=== PATIENT | female | born 1945 | race Caucasian/White ===

== ENCOUNTER 2017-12-19 18:46 | Emergency (ER) | payer MEDICARE, OTHER, SELFPAY ==
[2017-12-19 19:08] VITALS: BP 191/79; PULSE 108; RESP 14; TEMP 36.7; O2SAT 96; BMI 30.9
--- NOTE | 2017-12-19 19:28 | XR_ITS ---
XR chest 2V HISTORY: ITS.REASON: hypertension ORDERING PHYSICIAN: Billy Griffin MD PATIENT AGE: 72 years COMPARISON: None available FINDINGS: The cardiomediastinal silhouette and pulmonary vascularity are within normal limits. The lungs are clear without infiltrates, suspicious nodules, or pleural effusions. No acute bony abnormalities. IMPRESSION: Negative chest, no acute finding
[2017-12-19 19:39] LABS: Basophils % 0.4 % (0.1-2.0); Eosinophils # 0.1 K/mm3 (0.0-0.4); Eosinophils % 2.1 % (0.1-12.0); Hematocrit 36.3 % (37.0-47.0); Lymphocytes # 1.7 K/mm3 (0.7-4.5); Mean Corpuscular HGB Conc 33.1 g/dL (31.8-35.4); Mean Corpuscular Hemoglobin 29.3 pg (27.0-31.2); Mean Corpuscular Volume 88.5 fl (81-99); Mean Platelet Volume 8.1 fl (7.4-10.4); Monocytes # 0.3 K/mm3 (0.1-1.0); Monocytes % 6.2 % (1.7-9.3); Neutrophils # 3.1 K/mm3 (1.8-7.8); Neutrophils % 59.4 % (37.0-80.0); Platelet Count 204 K/mm3 (142-424); Red Cell Distribution Width 14.5 % (11.5-17.5); White Blood Count 5.2 K/mm3 (4.8-10.8)
[2017-12-19 20:14] LABS: Alanine Aminotransferase 31 U/L (12-78); Albumin Level 4.3 gm/dL (3.4-5.0); Albumin/Globulin Ratio 1.3 (1.1-1.8); Alkaline Phosphatase 64 U/L (46-116); Anion Gap 18.5 mEq/L (5-15); Aspartate Amino Transferase 20 U/L (15-37); Bilirubin,Total 0.5 mg/dL (0.2-1.0); Blood Urea Nitrogen 25 mg/dL (7-18); Calcium 9.1 mg/dL (8.5-10.1); Carbon Dioxide 25 mmol/L (21.0-32.0); Chloride 103 mmol/L (98-107); Creatinine Clearance Estimated 56 mL/min (0-300); Creatinine,Serum 1.13 mg/dL (0.55-1.02); Estimated Glomerular Filt Rate 48 ml/min (>60); GFR (African American) 58 ML/MIN (>60); Globulin 3.3 gm/dl (1.3-3.2); Glucose 158 mg/dL (74-106); Potassium 3.5 mmoL/L (3.5-5.1); Sodium 143 mmol/L (136-145); Total Protein,Serum 7.6 gm/dL (6.4-8.2); Troponin I < 0.02 ng/ml (0.00-0.06)
[2017-12-19 21:02] VITALS: BP 184/89; PULSE 111; RESP 14; TEMP 36.7; O2SAT 94
--- NOTE | 2017-12-19 21:44 | HMH.EDARPALP ---
ED Disposition Clinical Impression: Palpitations, Renal insufficiency Disposition: Home, Self-Care Condition on Discharge: Good Instructions: DI for Palpitations Additional Instructions: call pcp for follow up Referrals: Layo Maurice [Primary Care Provider] - - Critical Care Critical Care Time: No Attestation: On 12/19/17, the high probability of a clinically significant, sudden or life threatening deterioration of the following system(s) required my full and direct attention, intervention and personal management. The time I documented below is in addition to time spent performing reported procedures but includes the following listed in this critical care notation. Medical Decision Making - Medical Records Medical records reviewed: Yes: I reviewed the patient's medical records. Vital Signs: 12/19/17 19:08 12/19/17 21:02 Temperature 98.1 F 98.1 F Temperature Source Oral Oral Pulse Rate [Right Radial] 108 H 111 H Respiratory Rate 14 14 Blood Pressure [Right Radial Artery] 191/79 184/89 Blood Pressure Mean [Right Radial Artery] 116 120 Blood Pressure Source [Right Radial Artery] Automatic Cuff Blood Pressure Position [Right Radial Artery] Supine Sitting 02 Sat by Pulse Oximetry 96 94 L Oxygen Delivery Method Room Air Room Air - Lab Data Lab Results 12/19/17 19:20: WBC 5.2, RBC 4.10 L, Hgb 12.0 L, Hct 36.3 L, MCV 88.5, MCH 29.3, MCHC 33.1, RDW 14.5, Plt Count 204, MPV 8.1, Neut % (Auto) 59.4, Lymph % (Auto) 32.0, [place] % (Auto) 6.2, Eos % (Auto) 2.1, Baso % (Auto) 0.4, Neut # (Auto) 3.1, Lymph # (Auto) 1.7, [place] # (Auto) 0.3, Eos # (Auto) 0.1, Baso # (Auto) 0.0 12/19/17 19:20: Sodium 143, Potassium 3.5, Chloride 103, Carbon Dioxide 25, Anion Gap 18.5 H, BUN 25 H, Creatinine 1.13 H, Estimated Creat Clear 56, Estimated GFR 48 L, Est GFR ( Amer) 58 L, Glucose 158 H, Calcium 9.1, Total Bilirubin 0.5, AST 20, ALT 31, Alkaline Phosphatase 64, Troponin I < 0.02, Total Protein 7.6, Albumin 4.3, Globulin 3.3 H, Albumin/Globulin Ratio 1.3 Result diagrams: 12/19/17 19:20 12/19/17 19:20 Orders (Tests/Meds): ORDERS Category Date Time Status XR chest 2V Stat Exams 12/19/17 19:28 Taken - ECG Data Tracing #1 I reviewed this ECG and interpreted as documented below: Arrhythmias present: sinus tach Ischemic changes: non-specific ST-T wave changes ECG compared to prior tracings: there are no prior tracings available for comparison - Junior Inquiry Pt receiving controlled substance: No Arrhythmia/Palpitations HPI - General Chief Complaint: Arrhythmia/Palpitations Stated Complaint: pluse&bp High Time Seen by Provider: 12/19/17 21:45 Mode of Arrival: Ambulatory Source of Information: Patient, Significant Other, Medical Record Limitations: No Limitations - History of Present Illness HPI narrative: this wf over the last few days has episodes of inc hr and elevated bp MD complaint: palpitations Onset (ago): hour(s) Duration: intermittent Severity: moderate Context: occurred during rest - Related Data Home Medications Medication Instructions Recorded Confirmed Alendronate Sodium 35 mg PO WEEKLY 12/19/17 12/19/17 Allopurinol [Allopurinol 100mg 100 mg PO DAILY 12/19/17 12/19/17 tablet] Amlodipine Besylate [Norvasc 5mg 5 mg PO DAILY 12/19/17 12/19/17 tablet] Aspirin [Aspirin 81mg EC Tab] 81 mg PO DAILY 12/19/17 12/19/17 Atorvastatin Calcium [Atorvastatin 5 mg PO HS 12/19/17 12/19/17 10mg Tab] Ergocalciferol (Vitamin D2) 50,000 unit PO WEEKLY 12/19/17 12/19/17 [Vitamin D2] Esomeprazole Magnesium 40 mg PO DAILY 12/19/17 12/19/17 Fenofibrate,Micronized [Tricor 145 mg PO DAILY 12/19/17 12/19/17 145mg] Furosemide [Furosemide 20mg Tab] 10 mg PO DAILY 12/19/17 12/19/17 Gabapentin [Gabapentin 300mg Cap] 300 mg PO DAILY 12/19/17 12/19/17 Levothyroxine Sodium 100 mg PO DAILY 01/29/18 01/29/18 [Levothyroxine 100mcg (0.1MG) Tab] Losartan Potassium [Cozaar]
--- NOTE | 2017-12-19 21:48 | ED_ITS ---
ED Disposition Clinical Impression: Palpitations, Renal insufficiency Disposition: Home, Self-Care Condition on Discharge: Good Instructions: DI for Palpitations Additional Instructions: call pcp for follow up Referrals: Layo Maurice [Primary Care Provider] - - Critical Care Critical Care Time: No Attestation: On 12/19/17, the high probability of a clinically significant, sudden or life threatening deterioration of the following system(s) required my full and direct attention, intervention and personal management. The time I documented below is in addition to time spent performing reported procedures but includes the following listed in this critical care notation. Medical Decision Making - Medical Records Medical records reviewed: Yes: I reviewed the patient's medical records. Vital Signs: 12/19/17 19:08 12/19/17 21:02 Temperature 98.1 F 98.1 F Temperature Source Oral Oral Pulse Rate [Right Radial] 108 H 111 H Respiratory Rate 14 14 Blood Pressure [Right Radial Artery] 191/79 184/89 Blood Pressure Mean [Right Radial Artery] 116 120 Blood Pressure Source [Right Radial Artery] Automatic Cuff Blood Pressure Position [Right Radial Artery] Supine Sitting 02 Sat by Pulse Oximetry 96 94 L Oxygen Delivery Method Room Air Room Air - Lab Data Lab Results 12/19/17 19:20: WBC 5.2, RBC 4.10 L, Hgb 12.0 L, Hct 36.3 L, MCV 88.5, MCH 29.3 , MCHC 33.1, RDW 14.5, Plt Count 204, MPV 8.1, Neut % (Auto) 59.4, Lymph % (Auto ) 32.0, [place] % (Auto) 6.2, Eos % (Auto) 2.1, Baso % (Auto) 0.4, Neut # (Auto) 3.1, Lymph # (Auto) 1.7, [place] # (Auto) 0.3, Eos # (Auto) 0.1, Baso # (Auto) 0.0 12/19/17 19:20: Sodium 143, Potassium 3.5, Chloride 103, Carbon Dioxide 25, Anion Gap 18.5 H, BUN 25 H, Creatinine 1.13 H, Estimated Creat Clear 56, Estimated GFR 48 L, Est GFR ( Amer) 58 L, Glucose 158 H, Calcium 9.1, Total Bilirubin 0.5, AST 20, ALT 31, Alkaline Phosphatase 64, Troponin I < 0.02 , Total Protein 7.6, Albumin 4.3, Globulin 3.3 H, Albumin/Globulin Ratio 1.3 Result diagrams: 12/19/17 19:20 12/19/17 19:20 Orders (Tests/Meds): ORDERS Category Date Time Status XR chest 2V Stat Exams 12/19/17 19:28 Taken - ECG Data Tracing #1 I reviewed this ECG and interpreted as documented below: Arrhythmias present: sinus tach Ischemic changes: non-specific ST-T wave changes ECG compared to prior tracings: there are no prior tracings available for comparison - Junior Inquiry Pt receiving controlled substance: No Arrhythmia/Palpitations HPI - General Chief Complaint: Arrhythmia/Palpitations Stated Complaint: pluse&bp High Time Seen by Provider: 12/19/17 21:45 Mode of Arrival: Ambulatory Source of Information: Patient, Significant Other, Medical Record Limitations: No Limitations - History of Present Illness HPI narrative: this wf over the last few days has episodes of inc hr and elevated bp MD complaint: palpitations Onset (ago): hour(s) Duration: intermittent Severity: moderate Context: occurred during rest - Related Data Home Medications Medication Instructions Recorded Confirmed Alendronate Sodium 35 mg PO WEEKLY 12/19/17 12/19/17 Allopurinol [Allopurinol 100mg 100 mg PO DAILY 12/19/17 12/19/17 tablet] Amlodipine Besylate [Norvasc 5mg 5 mg PO DAILY 12/19/17 12/19/17 tablet]
[2017-12-19 22:24] LABS: T4 (Thyroxine) 16.6 ug/dl (4.7-13.3); Thyroid Stimulating Hormone 0.03 uIU/ml (0.358-3.740)
== END 2017-12-19 22:29 | disposition home or self-care (01) ==
PROVIDERS: Emergency Provider Emergency Medicine; Family Provider Internal Medicine; PCP Internal Medicine
DX: R00.2 Palpitations (principal); N28.9 Disorder of kidney and ureter, unspecified; E11.9 Type 2 diabetes mellitus without complications; Z79.84 Long term (current) use of oral hypoglycemic drugs; Z79.82 Long term (current) use of aspirin; Z79.899 Other long term (current) drug therapy; Z85.9 Personal history of malignant neoplasm, unspecified
CPT/HCPCS: 71046; 80053; 84436; 84443; 84484; 85025; 93005; 93041; 99283

== ENCOUNTER → 2018-03-29 08:57 | Outpatient (CLI) | payer MEDICARE, OTHER, SELFPAY ==
--- NOTE | 2018-03-29 09:10 | MM_ITS ---
MM Dig screening mamm BI w/CAD CAD Screening ORDERING PHYSICIAN : Layo Maurice PATIENT AGE: 72 years GENDER: Female COMPARISON: Bilateral screening mammogram: December 2016, November 2013, February 2016 . Right mammogram following stereotactic biopsy January 26, 2017 INDICATION: Previous stereotactic biopsy right breast January 2017. Patient TECHNIQUE: Standard CC and MLO images were obtained. R2 CAD reviewed. FINDINGS: Patient has had a stereotactic biopsy with clip placed at the site RIGHT BREAST: The small metallic marker from last year stereotactic biopsy evident at Central breast. There are some additional density seen here today reflecting postbiopsy changes and minimal. On MLO view it is noted to be directed into dissipates on this view.. The coarse dense calcifications at Central breast and upper outer quadrant are more evident but are clearly benign in nature. Other benign round and punctate calcifications are shown slight increased density but are not of concern. Follow-up in one year adequate. LEFT BREAST: Stable Numerous calcifications upper-outer quadrant again seen. Round dense calcifications on again evident here along with some smaller likely secretory calcifications within this region. At the central breast are also some some small linear likely benign secretory calcifications, which have shown slight progression with time. Can be followed in one year.. ...... IMPRESSION: ...... No significant new findings in either breast. Follow-up in not over one year recommended. Follow-up in one year be important and should be emphasized, in order to Follow-up the postbiopsy site & numerous most likely benign calcifications in both breast. . Right Breast:. Additional density at site of last years study stereotactic biopsy noted, but this appears compatible with postbiopsy changes & dissipates on MLO view. Follow-up in not over one year adequate Left breast.:. Numerous benign calcifications upper-outer quadrant appear stable; with subtle development/ progression of what are likely benign secretory calcifications at the central left breast. Again follow-up in not over one year adequate & recommended BI-RADS Category: 2 Benign Finding(s) RECOMMENDED FOLLOW-UP: 1YR - 1 YEAR FOLLOW-UP (A letter has been sent to the patient regarding results of the study.) A
== END ==
PROVIDERS: Family Provider Internal Medicine; PCP Internal Medicine; Visit Provider Internal Medicine
DX: Z12.31 Encounter for screening mammogram for malignant neoplasm of breast (principal)
CPT/HCPCS: 77067

== ENCOUNTER → 2019-05-01 10:01 | Outpatient (CLI) | payer MEDICARE, OTHER, SELFPAY ==
--- NOTE | 2019-05-01 10:10 | MM_ITS ---
MM Dig screening mamm BI w/CAD CAD Screening COMPARISON: Digital mammograms with CAD 03/29/2018 and outside digital mammograms with CAD 02/24/2016 INDICATION: There is a history of breast cancer in patient's paternal cousin diagnosed at age 50. There is been previous stereotactic biopsy right breast for benign disease TECHNIQUE: Standard CC and MLO images were obtained. R2 CAD reviewed. FINDINGS: Prominent diffuse somewhat heterogenic fibroglandular densities are seen throughout both breast somewhat lessening the sensitivity of mammography. There is an asymmetric density central portion right breast with a biopsy clip previous biopsy site. There are multiple scattered benign-appearing micro and macrocalcifications in each breast. There is no new or suspicious lesion in either breast and no suspicious microcalcifications. IMPRESSION: Stable exam with no suspicious lesion seen BI-RADS Category: 2 Benign Finding(s) RECOMMENDED FOLLOW-UP: 1YR - 1 YEAR FOLLOW-UP (A letter has been sent to the patient regarding results of the study.)
== END ==
PROVIDERS: PCP Internal Medicine; Visit Provider Internal Medicine
DX: Z12.31 Encounter for screening mammogram for malignant neoplasm of breast (principal)
CPT/HCPCS: 77067

== ENCOUNTER → 2019-06-27 09:49 | Outpatient (CLI) | payer MEDICARE, OTHER, SELFPAY ==
[2019-06-27 10:24] LABS: Basophils % 0.3 % (0.1-2.0); Eosinophils # 0.1 K/mm3 (0.0-0.4); Hematocrit 38.8 % (37.0-47.0); Hemoglobin 12.5 g/dL (12.2-16.2); Lymphocytes # 1.4 K/mm3 (0.7-4.5); Lymphocytes % 26.6 % (10-50); Mean Corpuscular HGB Conc 32.3 g/dL (31.8-35.4); Mean Corpuscular Hemoglobin 28.4 pg (27.0-31.2); Mean Platelet Volume 7.4 fl (7.4-10.4); Monocytes # 0.3 K/mm3 (0.1-1.0); Monocytes % 5.6 % (1.7-9.3); Neutrophils # 3.4 K/mm3 (1.8-7.8); Neutrophils % 65.6 % (37.0-80.0); Platelet Count 248 K/mm3 (142-424); Red Blood Count 4.41 M/mm3 (4.20-5.40); Red Cell Distribution Width 14.6 % (11.5-17.5); White Blood Count 5.2 K/mm3 (4.8-10.8)
[2019-06-27 11:48] LABS: Alanine Aminotransferase 26 U/L (12-78); Albumin Level 3.9 gm/dL (3.4-5.0); Albumin/Globulin Ratio 1.3 (1.1-1.8); Alkaline Phosphatase 67 U/L (46-116); Anion Gap 14.6 mEq/L (5-15); Aspartate Amino Transferase 15 U/L (15-37); Bilirubin,Total 0.4 mg/dL (0.2-1.0); Blood Urea Nitrogen 21 mg/dL (7-18); Calcium 9.3 mg/dL (8.5-10.1); Carbon Dioxide 29 mmol/L (21.0-32.0); Chloride 103 mmol/L (98-107); Chol/HDL Ratio 5.6 (1-3.5); Cholesterol 195 mg/dL (140-200); Creatinine,Serum 0.99 mg/dL (0.55-1.02); Estimated Glomerular Filt Rate 55 ml/min (>60); GFR (African American) 67 ML/MIN (>60); Globulin 3.1 gm/dl (1.3-3.2); Glucose 141 mg/dL (74-106); HDL Cholesterol 35 mg/dL (29-89); LDL Cholesterol 83 mg/dL (0-130); Potassium 4.6 mmoL/L (3.5-5.1); Sodium 142 mmol/L (136-145); Thyroid Stimulating Hormone 1.36 uIU/ml (0.358-3.740); Triglycerides 384 mg/dL (30-200); Uric Acid 3.5 mg/dL (2.6-7.2); VLDL Cholesterol 77 mg/dL (0-40)
== END ==
PROVIDERS: Visit Provider Internal Medicine
DX: E11.42 Type 2 diabetes mellitus with diabetic polyneuropathy (principal); E03.9 Hypothyroidism, unspecified; I10 Essential (primary) hypertension; Z85.038 Personal history of other malignant neoplasm of large intestine; Z79.84 Long term (current) use of oral hypoglycemic drugs
CPT/HCPCS: 36415; 80053; 80061; 84443; 84550; 85025

== ENCOUNTER → 2019-07-02 10:23 | Outpatient (CLI) | payer MEDICARE, OTHER, SELFPAY ==
[2019-07-02 14:50] LABS: Hemoglobin A1C 7.8 % (0.0-7.0)
== END ==
PROVIDERS: PCP Internal Medicine; Visit Provider Internal Medicine
DX: E11.42 Type 2 diabetes mellitus with diabetic polyneuropathy (principal); Z79.84 Long term (current) use of oral hypoglycemic drugs
CPT/HCPCS: 36415; 83036

== ENCOUNTER → 2019-11-07 08:22 | Outpatient (CLI) | payer MEDICARE, OTHER, SELFPAY ==
--- NOTE | 2019-11-07 08:25 | MR_ITS ---
PROCEDURE: MR HEAD/BRAIN WO/W CON CLINICAL INDICATION: DIZZINESS Dizziness, blurred vision, history of thyroid: Liver and breast cancer COMPARISON: No exams were available for comparison TECHNIQUE: Routine multiplanar multi echo sequences are performed without and with gadolinium enhancement. FINDINGS: No midline shift, mass effect, intracranial hemorrhage, or hydrocephalus is evident. The cerebellopontine angles, cerebellum, and brainstem have an unremarkable appearance. There are few scattered periventricular and subcortical T2 white matter hyperintensities suggesting ischemic gliotic change from microvascular disease. There are symmetrical small foci of increased T2 signal on the the post enhanced images in the frontal lobes on both sides on the axial images. These however do not persist on the coronal images and is felt to be due to artifact. No mastoid effusion or sinus air-fluid level. No obvious calvarial abnormality. There is partial empty sella as a normal variant. The optic chiasm, corpus callosum, and craniocervical junction have an unremarkable appearance. IMPRESSION: No acute intracranial findings. No convincing evidence of metastatic disease or other acute anomaly Dictated by: Sylvester Live MD 11/08/2019 06:38 Electronically signed by Sylvester Live MD in [place] 11/08/2019 06:38
--- NOTE | 2019-11-07 09:46 | HMH.ITSHM ---
Current Home Medications as stated by this patient Gladis Gallagher or account development representative. []ESOMEPRAZOLE ANASTROZOLE LEVOTHYROXINE FENOFIBRATE FURSEMIDE ALLOPURINOL LOSARTAN HCTZ ATORVASTATIN
== END ==
PROVIDERS: PCP Internal Medicine; Visit Provider Internal Medicine Hematology & Oncology
DX: R42 Dizziness and giddiness (principal); C50.211 Malignant neoplasm of upper-inner quadrant of right female breast
CPT/HCPCS: 70553; A9576

== ENCOUNTER → 2020-07-02 09:08 | Outpatient (CLI) | payer MEDICARE, OTHER, SELFPAY ==
--- NOTE | 2020-07-02 09:11 | MM_ITS ---
PROCEDURE: MM DIG SCREENING MAMM BI W/CAD Digital Breast Tomosynthesis Included CLINICAL INDICATION: SCREENING There is no personal or family history of breast cancer. There has been a previous biopsy right breast for benign disease. COMPARISON: MG DMDXUR DIG MAMM-DX UNI-RT W/CAD from 01/26/2017 MG [facility]BI MM Dig screening mamm BI w/CAD from 03/29/2018 MG DIG MAMM-SCREEN SUSHIL from 05/01/2019 TECHNIQUE: Standard CC and MLO images and 3D Tomosynthesis was obtained. R2 CAD reviewed. FINDINGS: Diffuse prominent somewhat heterogenic fibroglandular densities are seen throughout both breasts. Multiple benign-appearing micro and macrocalcifications which are stable are again seen in both breasts. Again noted is a biopsy clip central portion right breast. There is no new or suspicious lesion in either breast and no suspicious microcalcifications. IMPRESSION: Stable exam with no suspicious lesions seen BI-RAD Category: 2 Benign Finding(s) FOLLOW-UP: 1YR 1 Year Follow-up (A letter has been sent to the patient regarding results of the study.) Dictated Dr. Larry Manrique MD 07/04/2020 08:20 Dr. Larry Ceballos MD in [place] 07/04/2020 08:20
== END ==
PROVIDERS: PCP Internal Medicine; Visit Provider Internal Medicine
DX: Z12.31 Encounter for screening mammogram for malignant neoplasm of breast (principal)
CPT/HCPCS: 77063; 77067

== ENCOUNTER → 2021-06-08 16:40 | Outpatient (CLI) | payer MEDICARE, OTHER, SELFPAY ==
--- NOTE | 2021-06-08 16:51 | MM_ITS ---
PROCEDURE: MM DIG SCREENING MAMM BI W/CAD Digital Breast Tomosynthesis Included CLINICAL INDICATION: SCREENING There is a history of breast cancer in the patient's paternal cousin. There has been a previous biopsy right breast benign disease. COMPARISON: MG [facility]BI MM Dig screening mamm BI w/CAD from 03/29/2018 MG DIG MAMM-SCREEN SUSHIL from 05/01/2019 MG MM DIG SCREENING MAMM BI W/CAD from 07/02/2020 TECHNIQUE: Standard CC and MLO images and 3D Tomosynthesis was obtained. R2 CAD reviewed. FINDINGS: Prominent diffuse fibroglandular densities are seen throughout both breasts. There are multiple too numerous to count micro and macrocalcifications throughout each breast. There is a biopsy clip right breast. CAD markings were reviewed and they appear to be benign. There is no suspicious lesion and no suspicious microcalcifications. IMPRESSION: Diffuse breast density with no suspicious lesions seen BI-RAD Category: 2 Benign Finding(s) FOLLOW-UP: 1YR 1 Year Follow-up (A letter has been sent to the patient regarding results of the study.) Dictated by: Dr. Larry Ceballos MD 06/10/2021 08:40 Dr. Larry Ceballos MD in [place] 06/10/2021 08:40
== END ==
PROVIDERS: PCP Internal Medicine; Visit Provider Internal Medicine
DX: Z12.31 Encounter for screening mammogram for malignant neoplasm of breast (principal)
CPT/HCPCS: 77063; 77067

== ENCOUNTER → 2021-07-15 09:44 | Outpatient (CLI) | payer MEDICARE, OTHER, SELFPAY ==
[2021-07-15 10:47] LABS: Hemoglobin A1C 6.4 % (4.0-6.0)
[2021-07-15 11:44] LABS: Chloride 106 mmol/L (98-107); Sodium 143 mmol/L (136-145)
[2021-07-15 11:45] LABS: Potassium 4.3 mmoL/L (3.5-5.1)
[2021-07-15 11:47] LABS: Alanine Aminotransferase 22 U/L (12-78); Albumin Level 4.1 g/dl (3.5-5.0); Albumin/Globulin Ratio 1.6 (1.1-1.8); Alkaline Phosphatase 76 U/L (38-126); Anion Gap 16.3 mEq/L (5-15); Aspartate Amino Transferase 34 U/L (14-36); Bilirubin,Total 0.5 mg/dl (0.2-1.3); Blood Urea Nitrogen 23 mg/dl (7-17); Carbon Dioxide 25 mmol/L (22.0-30.0); Cholesterol 186 mg/dl (140-200); Estimated Glomerular Filt Rate 44 ml/min (>60); GFR (African American) 53 ML/MIN (>60); Globulin 2.5 g/dL (1.3-3.2); Total Protein,Serum 6.6 g/dl (6.3-8.2); Triglycerides 254 mg/dl (30-150); VLDL Cholesterol 51 mg/dL (0-40)
[2021-07-15 11:48] LABS: Calcium 9.1 mg/dl (8.4-10.2); Glucose 95 mg/dl (74-100); HDL Cholesterol 37 mg/dl (40-60)
[2021-07-15 11:59] LABS: Direct LDL Cholesterol 106.38 mg/dL (100-129)
== END ==
PROVIDERS: Visit Provider Internal Medicine
DX: E11.42 Type 2 diabetes mellitus with diabetic polyneuropathy (principal); I10 Essential (primary) hypertension; E03.9 Hypothyroidism, unspecified; E78.5 Hyperlipidemia, unspecified
CPT/HCPCS: 36415; 80053; 80061; 83036

== ENCOUNTER → 2022-01-13 12:01 | Outpatient (CLI) | payer MEDICARE, OTHER, SELFPAY ==
[2022-01-13 13:29] LABS: Basophils % 0.7 % (0.1-2.0); Eosinophils # 0.1 K/mm3 (0.0-0.4); Eosinophils % 2.9 % (0.1-12.0); Hematocrit 40.4 % (37.0-47.0); Hemoglobin 12.8 g/dL (12.2-16.2); Lymphocytes # 1.1 K/mm3 (0.7-4.5); Lymphocytes % 27.6 % (10-50); Mean Corpuscular HGB Conc 31.7 g/dL (31.8-35.4); Mean Corpuscular Hemoglobin 29.7 pg (27.0-31.2); Mean Corpuscular Volume 93.6 fl (81-99); Mean Platelet Volume 9.5 fl (7.4-10.4); Monocytes # 0.2 K/mm3 (0.1-1.0); Monocytes % 5.8 % (1.7-9.3); Neutrophils # 2.5 K/mm3 (1.8-7.8); Neutrophils % 62.8 % (37.0-80.0); Platelet Count 236 K/mm3 (142-424); Red Blood Count 4.32 M/mm3 (4.20-5.40); Red Cell Distribution Width 14.8 % (11.5-17.5)
[2022-01-13 13:58] LABS: Chloride 102 mmol/L (98-107); Sodium 136 mmol/L (136-145)
[2022-01-13 14:01] LABS: Alanine Aminotransferase 21 U/L (12-78); Albumin Level 4.2 g/dl (3.5-5.0); Albumin/Globulin Ratio 1.8 (1.1-1.8); Alkaline Phosphatase 53 U/L (38-126); Anion Gap 9.7 mEq/L (5-15); Aspartate Amino Transferase 35 U/L (14-36); Bilirubin,Total 0.7 mg/dl (0.2-1.3); Blood Urea Nitrogen 23 mg/dl (7-17); Calcium 8.6 mg/dl (8.4-10.2); Carbon Dioxide 29 mmol/L (22.0-30.0); Cholesterol 193 mg/dl (140-200); Estimated Glomerular Filt Rate 49 ml/min (>60); GFR (African American) 59 ML/MIN (>60); Globulin 2.4 g/dL (1.3-3.2); Glucose 84 mg/dl (74-100); Potassium 4.7 mmoL/L (3.5-5.1); Total Protein,Serum 6.6 g/dl (6.3-8.2); Triglycerides 320 mg/dl (30-150); VLDL Cholesterol 64 mg/dL (0-40)
[2022-01-13 14:02] LABS: Chol/HDL Ratio 5.1 (1-3.5); HDL Cholesterol 38 mg/dl (40-60)
[2022-01-13 14:12] LABS: Direct LDL Cholesterol 109.88 mg/dL (100-129)
[2022-01-13 18:57] LABS: Hemoglobin A1C 6.2 % (4.0-6.0)
== END ==
PROVIDERS: Visit Provider Internal Medicine
DX: E11.42 Type 2 diabetes mellitus with diabetic polyneuropathy (principal); I10 Essential (primary) hypertension; E78.5 Hyperlipidemia, unspecified; M10.9 Gout, unspecified; Z79.84 Long term (current) use of oral hypoglycemic drugs
CPT/HCPCS: 80053; 80061; 82043; 83036; 85025

== ENCOUNTER → 2022-07-14 12:30 | Outpatient (CLI) | payer MEDICARE, OTHER, SELFPAY ==
[2022-07-14 13:48] LABS: Alanine Aminotransferase 24 U/L (12-78); Albumin Level 4.2 g/dl (3.5-5.0); Albumin/Globulin Ratio 1.8 (1.1-1.8); Alkaline Phosphatase 67 U/L (38-126); Anion Gap 15.2 mEq/L (5-15); Aspartate Amino Transferase 36 U/L (14-36); Bilirubin,Total 0.5 mg/dl (0.2-1.3); Blood Urea Nitrogen 29 mg/dl (7-17); Calcium 9.1 mg/dl (8.4-10.2); Carbon Dioxide 27 mmol/L (22.0-30.0); Chloride 100 mmol/L (98-107); Chol/HDL Ratio 4.8 (1-3.5); Cholesterol 183 mg/dl (140-200); Estimated Glomerular Filt Rate 44 ml/min (>60); GFR (African American) 53 ML/MIN (>60); Globulin 2.4 g/dL (1.3-3.2); Glucose 117 mg/dl (74-100); HDL Cholesterol 38 mg/dl (40-60); Potassium 3.2 mmoL/L (3.5-5.1); Sodium 139 mmol/L (136-145); Total Protein,Serum 6.6 g/dl (6.3-8.2); Triglycerides 393 mg/dl (30-150); VLDL Cholesterol 79 mg/dL (0-40)
[2022-07-14 14:19] LABS: Thyroid Stimulating Hormone 0.29 uIU/mL (0.465-4.68)
[2022-07-14 15:25] LABS: Hemoglobin A1C 6.3 % (4.0-6.0)
[2022-07-16 10:11] LABS: Direct LDL Cholesterol 84 mg/dL (100-129)
== END ==
PROVIDERS: PCP Internal Medicine; Visit Provider Internal Medicine
DX: E03.9 Hypothyroidism, unspecified (principal); I10 Essential (primary) hypertension; E78.5 Hyperlipidemia, unspecified; E11.42 Type 2 diabetes mellitus with diabetic polyneuropathy; Z79.84 Long term (current) use of oral hypoglycemic drugs
CPT/HCPCS: 80053; 80061; 83036; 84443

== ENCOUNTER → 2022-07-27 14:36 | Outpatient (CLI) | payer MEDICARE, OTHER, SELFPAY ==
--- NOTE | 2022-07-27 14:41 | MM_ITS ---
PROCEDURE INFORMATION: Exam: MG Bilateral Screening 3D Mammography Exam date and time: 07/27/2022 2:40 PM Age: 77 years old Clinical indication: Screening mammogram. TECHNIQUE: Imaging protocol: Bilateral Screening tomosynthesis and 2D mammography including computer-aided detection (CAD) when performed. COMPARISON: 1. MG MM DIG SCREENING MAMM BI W/CAD 06/08/2021 4:48 PM 2. MG MM DIG SCREENING MAMM BI W/CAD 07/02/2020 9:26 AM 3. MG DIG MAMM-SCREEN SUSHIL 05/01/2019 10:23 AM 4. MG SCBI MM Dig screening mamm BI w/CAD 03/29/2018 9:16 AM FINDINGS: MAMMOGRAPHY: Breast composition: There are scattered areas of fibroglandular density. Mass: None. Architectural distortion: No new or suspicious architectural distortion. Calcifications: Stable benign-appearing calcifications are present. No new or suspicious cluster of microcalcifications have developed. Asymmetric density: No new or suspicious asymmetric density is present Skin thickening: None. Axillary adenopathy: None. IMPRESSION: No mammographic evidence of malignancy. Recommend annual screening mammography unless otherwise clinically indicated. ASSESSMENT: BI-RADS category 2: Benign
--- NOTE | 2022-07-27 15:05 | MR_ITS ---
FINAL REPORT CLINICAL HISTORY: LOWER BACK PAIN WITH SCIATICA bilateral leg weakness right is worse than left multiple falls in the last few months FINDINGS: MRI LUMBAR SPINE W/O CONTRAST Multiplanar MR imaging of the lumbar spine was performed without contrast. On the sagittal T2-weighted images, disc degeneration is seen throughout. There is mild anterolisthesis of L5 on S1. Note is made of a hemangioma in the L1 vertebral body. There is no evidence of fracture. The conus has an unremarkable appearance. L1-2: There is an annular disc bulge with facet arthropathy and vertebral osteophytes. L2-3: There is an annular disc bulge with facet arthropathy and vertebral osteophytes. There is a small left foraminal disc protrusion. L3-4: There is an annular disc bulge with facet arthropathy and vertebral osteophytes. There is a small left foraminal disc protrusion with mild left neural foraminal narrowing. L4-5: There is an annular disc bulge with facet arthropathy and vertebral osteophytes. There is right lateral recess stenosis with moderate bilateral neural foraminal narrowing. L5-S1: There is an annular disc bulge with facet arthropathy. There is moderate bilateral neural foraminal narrowing. IMPRESSION: Multilevel disc degeneration and spondylosis with areas of neural foraminal narrowing on the left at L3-4 and bilaterally at L4-5 and L5-S1. Small left foraminal disc protrusions at L2-3 and L3-4 . Right lateral recess stenosis at L4-5. Reviewed, Interpreted and Dictated by Cecil Black III, MD Transcribed by Ivonne Abbott Authenticated and [facility]
== END ==
PROVIDERS: PCP Internal Medicine; Visit Provider Internal Medicine
DX: Z12.31 Encounter for screening mammogram for malignant neoplasm of breast (principal); M54.40 Lumbago with sciatica, unspecified side
CPT/HCPCS: 72148; 76376; 77063; 77067

== ENCOUNTER → 2023-01-24 13:38 | Outpatient (CLI) | payer MEDICARE, OTHER, SELFPAY ==
[2023-01-24 17:12] LABS: Microalbumin/Creatinine Ratio 100.8
[2023-01-24 17:19] LABS: Creatinine,Urine Random 23 mg/dL (Not Estab.); Hemoglobin A1C 6.1 % (4.0-6.0)
[2023-01-24 17:34] LABS: Alanine Aminotransferase 19 U/L (12-78); Albumin Level 4.4 g/dl (3.5-5.0); Albumin/Globulin Ratio 1.9 (1.1-1.8); Alkaline Phosphatase 80 U/L (38-126); Anion Gap 13.2 mEq/L (5-15); Aspartate Amino Transferase 31 U/L (14-36); Bilirubin,Total 0.6 mg/dl (0.2-1.3); Blood Urea Nitrogen 33 mg/dl (7-17); Calcium 9.2 mg/dl (8.4-10.2); Carbon Dioxide 29 mmol/L (22.0-30.0); Chloride 101 mmol/L (98-107); Chol/HDL Ratio 5.7 (1-3.5); Cholesterol 218 mg/dl (140-200); Estimated Glomerular Filt Rate 34 ml/min (>60); GFR (African American) 41 ML/MIN (>60); Globulin 2.3 g/dL (1.3-3.2); Glucose 101 mg/dl (74-100); HDL Cholesterol 38 mg/dl (40-60); Potassium 4.2 mmoL/L (3.5-5.1); Sodium 139 mmol/L (136-145); Total Protein,Serum 6.7 g/dl (6.3-8.2)
[2023-01-24 17:45] LABS: Direct LDL Cholesterol 111.08 mg/dL (100-129)
[2023-01-24 17:50] LABS: Triglycerides 467 mg/dl (30-150)
== END ==
PROVIDERS: PCP Internal Medicine; Visit Provider Internal Medicine
DX: E11.42 Type 2 diabetes mellitus with diabetic polyneuropathy (principal); I10 Essential (primary) hypertension; E78.5 Hyperlipidemia, unspecified; Z85.038 Personal history of other malignant neoplasm of large intestine; Z85.3 Personal history of malignant neoplasm of breast; Z79.84 Long term (current) use of oral hypoglycemic drugs
CPT/HCPCS: 80053; 80061; 82043; 82570; 83036

== ENCOUNTER → 2023-02-23 14:42 | Outpatient (CLI) | payer MEDICARE, OTHER, SELFPAY ==
--- NOTE | 2023-02-23 14:47 | US_ITS ---
FINAL REPORT TECHNIQUE: Ultrasound images of the kidneys were obtained. CLINICAL HISTORY: ELEVATED KIDNEY FUNCTION FINDINGS: US RETROPERITONEAL The right kidney measures 12.1 cm in length. No mass is identified. There is no hydronephrosis. The left kidney measures 11.3 cm in length. No mass is identified. There is no hydronephrosis. The spleen measures 11.9 cm in length and is unremarkable in appearance. IMPRESSION: Unremarkable exam. Reviewed, Interpreted and Dictated by Rubén Lerma MD Transcribed by Ivonne Abbott Authenticated and [facility]
--- NOTE | 2023-02-23 14:48 | US_ITS ---
FINAL REPORT CLINICAL HISTORY: ELEVATED KIDNEY FUNCTION FINDINGS: Sonographic images were obtained of the bladder. On the filled views the bladder measures 9.8 x 5.5 x 8.9 cm corresponding with bladder volume of 252 mL. On the postvoid views the bladder measures 3.3 x 2.2 x 3.9 cm corresponding with bladder volume of 14.9 mL. Ureteral jets are visualized. No masses are seen. IMPRESSION: Minimal residual on postvoid images. Reviewed, Interpreted and Dictated by Rubén Lerma MD Transcribed by Ivonne Abbott Authenticated and [facility]
== END ==
PROVIDERS: PCP Internal Medicine; Visit Provider Internal Medicine
DX: R94.4 Abnormal results of kidney function studies (principal)
CPT/HCPCS: 76770; 76857

== ENCOUNTER → 2023-04-26 12:25 | Outpatient (CLI) | payer MEDICARE, OTHER, SELFPAY ==
[2023-04-26 16:50] LABS: Alanine Aminotransferase 22 U/L (12-78); Albumin Level 4.6 g/dl (3.5-5.0); Albumin/Globulin Ratio 1.8 (1.1-1.8); Alkaline Phosphatase 82 U/L (38-126); Anion Gap 19.1 mEq/L (5-15); Aspartate Amino Transferase 36 U/L (14-36); Bilirubin,Total 0.6 mg/dl (0.2-1.3); Blood Urea Nitrogen 30 mg/dl (7-17); Calcium 9.5 mg/dl (8.4-10.2); Carbon Dioxide 30 mmol/L (22.0-30.0); Chloride 97 mmol/L (98-107); Estimated Glomerular Filt Rate 40 ml/min (>60); GFR (African American) 48 ML/MIN (>60); Globulin 2.5 g/dL (1.3-3.2); Glucose 81 mg/dl (74-100); Potassium 4.1 mmoL/L (3.5-5.1); Sodium 142 mmol/L (136-145); Total Protein,Serum 7.1 g/dl (6.3-8.2)
[2023-04-26 17:27] LABS: Hemoglobin A1C 6.2 % (4.0-6.0)
== END ==
PROVIDERS: PCP Internal Medicine; Visit Provider Internal Medicine
DX: E11.42 Type 2 diabetes mellitus with diabetic polyneuropathy (principal); I10 Essential (primary) hypertension; Z79.84 Long term (current) use of oral hypoglycemic drugs
CPT/HCPCS: 80053; 83036

== ENCOUNTER → 2023-05-12 13:09 | Outpatient (CLI) | payer MEDICARE, OTHER, SELFPAY ==
--- NOTE | 2023-05-12 13:13 | MR_ITS ---
FINAL REPORT CLINICAL HISTORY: Ataxic gait MOOD CHANGES DIZZINESS FLOATERS IN EYES HX OF THYROID COLON, LIVER AND BREAST CANCER 15ML PROHANCE COMPARISON: 11/07/2019 FINDINGS: Multiplanar MR imaging of the brain was performed without and with contrast. There is [id number] atrophy present. There is moderate increased signal in the deep white matter compatible with ischemic/gliotic microvascular change. There is no evidence of intracranial hemorrhage or mass. No abnormal extra-axial fluid collection is seen. The ventricular size is within normal limits. There is no evidence of shift of the midline structures. The posterior fossa and brainstem have an unremarkable appearance. No area of abnormal restricted diffusion is identified. No abnormal contrast enhancement is seen. Normal major vessel vascular flow voids are noted. Note is made of a partially empty sella, also noted on the prior MR of 2019. IMPRESSION: No acute intracranial abnormality identified. [id number] atrophy and moderate increased signal in the deep white matter consistent with ischemic/gliotic microvascular change. Reviewed, Interpreted and Dictated by Rubén Lerma MD Transcribed by Ifrah Aguilar Authenticated and [facility]
== END ==
PROVIDERS: PCP Internal Medicine; Visit Provider Internal Medicine Hematology & Oncology
DX: R26.0 Ataxic gait (principal)
CPT/HCPCS: 70553; A9576

== ENCOUNTER → 2023-07-06 12:45 | Outpatient (CLI) | payer MEDICARE, OTHER, SELFPAY ==
--- NOTE | 2023-07-06 12:47 | US_ITS ---
FINAL REPORT CLINICAL HISTORY: REDNESS LT TOES X SEVERAL MONTHS,DM,HTN,EDEMA,CLAUDICATION,REST PAIN FINDINGS: COMPLETE ANKLE/BRACHIAL INDICES BILATERAL Complete ankle brachial indices were obtained. The right NINA is 1.1. The left NINA is 0.6. IMPRESSION: Moderate vascular calcification on the left. If indicated, CTA or catheter angiogram could better evaluate. Reviewed, Interpreted and Dictated by Cecil Black III, MD Transcribed by Seda Lyons Authenticated and [facility]
== END ==
PROVIDERS: PCP Internal Medicine; Visit Provider Internal Medicine
DX: R09.89 Other specified symptoms and signs involving the circulatory and respiratory systems (principal); R23.8 Other skin changes; R60.0 Localized edema
CPT/HCPCS: 93923

== ENCOUNTER → 2023-07-13 12:09 | Outpatient (CLI) | payer MEDICARE, OTHER, SELFPAY ==
--- NOTE | 2023-07-13 12:18 | CA_ITS ---
FINAL REPORT TECHNIQUE: Bilateral lower extremity venous duplex was performed with augmentation and compression. CLINICAL HISTORY: EDEMA, PAD-decrease pedal pulses, claudication FINDINGS: Proper flow is seen throughout the deep venous systems bilaterally. There is no evidence of deep venous thrombosis. IMPRESSION: No evidence of deep venous thrombosis. Reviewed, Interpreted and Dictated by Rubén Lerma MD Transcribed by Seda Lyons Authenticated and [facility]
--- NOTE | 2023-07-13 12:18 | CA_ITS ---
FINAL REPORT TECHNIQUE: Color Doppler, duplex Doppler and hernández scale sonography of the bilateral neck arterial vasculature was performed. Velocities were measured in the carotid arteries. Stenosis evaluation based on the validated velocity criteria. CLINICAL HISTORY: Palpitations, HTN, HLD, Occlusive PAD, DM FINDINGS: The peak systolic velocity of the right common carotid artery is 100 cm/s. The peak systolic velocity of the right internal carotid artery is 130 cm/s and end diastolic velocity 28 cm/s. The ICA/CCA ratio is 1.3. A moderate amount of plaque is present. The right external carotid artery is patent. The right vertebral artery is patent with antegrade flow. The peak systolic velocity of the left common carotid artery is 101 cm/s. The peak systolic velocity of the left internal carotid artery is 124 cm/s and end diastolic velocity 29 cm/s. The ICA/CCA ratio is 1.3. A moderate amount of plaque is present. The left external carotid artery is patent.The left vertebral artery is patent with antegrade flow. IMPRESSION: Less than 50% bilateral carotid stenoses. Bilateral patent vertebral arteries with antegrade flow. If indicated, CTA or MRA could further evaluate. Reviewed, Interpreted and Dictated by Rubén Lerma MD Transcribed by Seda Lyons Authenticated and [facility]
== END ==
PROVIDERS: PCP Internal Medicine; Visit Provider Physician Assistant
DX: E78.5 Hyperlipidemia, unspecified (principal); I10 Essential (primary) hypertension; R00.2 Palpitations; R09.89 Other specified symptoms and signs involving the circulatory and respiratory systems; I73.9 Peripheral vascular disease, unspecified; R60.0 Localized edema
CPT/HCPCS: 93880; 93970

== ENCOUNTER 2023-07-19 07:12 | Day surgery (SDC) | payer MEDICARE, OTHER, SELFPAY ==
[2023-07-19] VITALS (33 sets, daily range): BP systolic 120–177; BP diastolic 59–85; PULSE 65–81; RESP 16–18; O2SAT 90–98; BMI 30.4
--- NOTE | 2023-07-19 07:10 | IR_ITS ---
APPROVED REPORT Patient Location: Outpatient Owner Oral Surgeon: MANDY Rosenbaum RT (R) PROCEDURES Catheter placed in left common iliac artery Left common iliac artery antegrade angiogram Catheter placement in the left common femoral artery Left common femoral artery antegrade angiogram with unilateral runoff to the left foot Intravascular lithotripsy to the left popliteal artery Drug-coated balloon angioplasty to left popliteal artery Bilateral selective renal angiography INDICATION Vermillion claudication class III, Abnormal NINA 0.58 left leg, Calcified atherosclerotic plaque in the left popliteal artery, 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 COMPLICATIONS None Estimated Blood Loss: Less than 10 mls TECHNIQUE 1% lidocaine used anesthetize right groin respiratory was accessed via the Salinger technique and a 5 Panamanian sheath was placed in the right femoral artery. A rim catheter was advanced to the left common iliac artery where antegrade angiography was then performed. Under fluoroscopic guidance an advantage wire was advanced to the left superficial femoral artery where the rim catheter was advanced to the left common femoral artery where antegrade angiography with unilateral runoff to the left foot was performed. Following this therapeutic heparin was administered and the 5 Panamanian sheath and rim catheter were exchanged for a long 6 Panamanian destination sheath. A Choice PT extra-support wire was placed across the lesion in the left popliteal artery and a 4.5 x 60 mm shockwave lithotripsy balloon was deployed at 4 then 6 veronique and then to 10 veronique for the full 300 pulsations. Excellent angiographic results were obtained. A 5 mm x 120 mm drug-coated balloon was then advanced to the left popliteal artery and deployed at 10 veronique for 3 minutes further reducing the stenosis. Excellent angiographic results were obtained. At the end the procedure a JR4 catheter was used to select each renal artery and perform selective renal angiography. At the end the procedure the apparatus was removed the long 6 Panamanian sheath was exchanged for short 6 Panamanian sheath and the patient was transferred to the postop putting in stable addition ANGIOGRAPHIC RESULTS Left common internal and external iliac arteries are widely patent Left common femoral artery has mild atheromatous plaque Left profunda femoris artery is widely patent Left superficial femoral artery has 30% diffuse calcifications. Left popliteal artery has 50 and a focal 90% calcified stenosis with a distal 50% stenosis. Left posterior tibialis artery is proximally occluded. The left anterior to the tibialis artery is patent in the proximal segment and then occludes at mid portion. It reconstitutes distally into the dorsalis pedis. The left posterior tibialis artery reconstitutes distally from collaterals apparently from the peroneal artery. The left peroneal artery is patent however small caliber with severe diffuse disease. The peroneal artery collateralizes the distal PT and AT Right renal artery singular normal Left renal artery singular normal IMPRESSION Peripheral artery disease as described above Successful intravascular lithotripsy left popliteal artery followed by drug-coated balloon angioplasty severe disease reduced to less than 10% Normal renal arteries bilaterally Severe to critical disease in the left popliteal artery as described above which was successfully treated with intravascular lithotripsy followed by drug-coated balloon angioplasty producing excellent angiographic results Severe infrageniculate disease as described above PLAN 1. Plavix 75 mg daily plus aspirin 81 mg daily for 1 week 2. C
[2023-07-19 08:36] LABS: Basophils % 0.7 % (0.1-2.0); Eosinophils # 0.1 K/mm3 (0.0-0.4); Hematocrit 38.9 % (37.0-47.0); Hemoglobin 12.7 g/dL (12.2-16.2); Lymphocytes % 16.4 % (10-50); Mean Corpuscular HGB Conc 32.7 g/dL (31.8-35.4); Mean Corpuscular Hemoglobin 30.4 pg (27.0-31.2); Mean Corpuscular Volume 92.8 fl (81-99); Mean Platelet Volume 8.3 fl (7.4-10.4); Monocytes # 0.4 K/mm3 (0.1-1.0); Monocytes % 6.2 % (1.7-9.3); Neutrophils # 4.7 K/mm3 (1.8-7.8); Neutrophils % 74.8 % (37.0-80.0); Platelet Count 216 K/mm3 (142-424); Red Blood Count 4.19 M/mm3 (4.20-5.40); White Blood Count 6.3 K/mm3 (4.8-10.8)
[2023-07-19 08:39] LABS: Chloride 102 mmol/L (98-107); Sodium 143 mmol/L (136-145)
[2023-07-19 08:40] LABS: Potassium 3.5 mmoL/L (3.5-5.1)
[2023-07-19 08:42] LABS: Blood Urea Nitrogen 30 mg/dl (7-17); Creatinine Clearance Estimated 45 mL/min (50-200); Estimated Glomerular Filt Rate 40 ml/min (>60); GFR (African American) 48 ML/MIN (>60)
[2023-07-19 08:43] LABS: Anion Gap 15.5 mEq/L (5-15); Calcium 9.7 mg/dl (8.4-10.2); Carbon Dioxide 29 mmol/L (22.0-30.0); Glucose 120 mg/dl (74-100)
[2023-07-19 10:44] LABS: CATHL Activated Clotting Time 369 SEC (74-125)
--- NOTE | 2023-07-19 16:18 | HMH.PHACLD ---
Gladis Gallagher has received discharge medication counseling on the following medications: ASPIRIN 81 MG DAILY PLAVIX 75 MG DAILY ATORVASTATIN 40 MG DAILY
== END 2023-07-19 16:44 | disposition home or self-care (01) ==
PROVIDERS: PCP Internal Medicine; Visit Provider Internal Medicine
PROC: 047N3Z1 Dilation of Left Popliteal Artery using Drug-Coated Balloon, Percutaneous Approach (ICD-10-PCS; principal; 2023-07-19 08:30)
DX: I70.213 Atherosclerosis of native arteries of extremities with intermittent claudication, bilateral legs (principal); R09.89 Other specified symptoms and signs involving the circulatory and respiratory systems; Z79.84 Long term (current) use of oral hypoglycemic drugs; Z79.899 Other long term (current) drug therapy; E11.9 Type 2 diabetes mellitus without complications; I10 Essential (primary) hypertension; E78.5 Hyperlipidemia, unspecified
CPT/HCPCS: 36252; 80048; 85025; 85347; 99152; 99153; C1725; C1766; C1769; C1894; C9764; J1644; J2720; Q9967

== ENCOUNTER → 2023-07-27 17:01 | Outpatient (CLI) | payer MEDICARE, OTHER, SELFPAY ==
[2023-07-27 18:11] LABS: Cholesterol 234 mg/dl (140-200)
[2023-07-27 18:12] LABS: Chol/HDL Ratio 8.4 (1-3.5); HDL Cholesterol 28 mg/dl (40-60)
[2023-07-27 18:13] LABS: Hemoglobin A1C 6.3 % (4.0-6.0)
[2023-07-27 18:14] LABS: Triglycerides 517 mg/dl (30-150)
[2023-07-27 18:23] LABS: Direct LDL Cholesterol 120.71 mg/dL (100-129)
[2023-07-28 10:06] LABS: Alanine Aminotransferase 21 U/L (12-78); Albumin Level 4.3 g/dl (3.5-5.0); Albumin/Globulin Ratio 1.5 (1.1-1.8); Alkaline Phosphatase 67 U/L (38-126); Anion Gap 16.8 mEq/L (5-15); Aspartate Amino Transferase 36 U/L (14-36); Bilirubin,Total 0.4 mg/dl (0.2-1.3); Blood Urea Nitrogen 20 mg/dl (7-17); Calcium 9.5 mg/dl (8.4-10.2); Carbon Dioxide 27 mmol/L (22.0-30.0); Chloride 103 mmol/L (98-107); Estimated Glomerular Filt Rate 44 ml/min (>60); GFR (African American) 53 ML/MIN (>60); Globulin 2.9 g/dL (1.3-3.2); Glucose 80 mg/dl (74-100); Potassium 4.8 mmoL/L (3.5-5.1); Sodium 142 mmol/L (136-145); Total Protein,Serum 7.2 g/dl (6.3-8.2)
== END ==
PROVIDERS: PCP Internal Medicine; Visit Provider Internal Medicine
DX: E11.59 Type 2 diabetes mellitus with other circulatory complications (principal); E11.42 Type 2 diabetes mellitus with diabetic polyneuropathy; I73.9 Peripheral vascular disease, unspecified; I10 Essential (primary) hypertension; E78.5 Hyperlipidemia, unspecified; E03.9 Hypothyroidism, unspecified; M10.9 Gout, unspecified; Z85.3 Personal history of malignant neoplasm of breast; Z85.038 Personal history of other malignant neoplasm of large intestine; Z85.850 Personal history of malignant neoplasm of thyroid; Z79.84 Long term (current) use of oral hypoglycemic drugs
CPT/HCPCS: 80053; 80061; 83036; 84443; 85025

== ENCOUNTER → 2023-07-29 12:44 | Outpatient (CLI) | payer MEDICARE, OTHER, SELFPAY ==
--- NOTE | 2023-07-29 12:46 | CA_ITS ---
APPROVED REPORT EXAM: Comprehensive 2D, Doppler, and color-flow Echocardiogram Live Truck Operator: Maki Lewis RT(R) Ht: 5 ft 3 in Wt: 173lbs BSA: 1.82 BP: 183/68 mmHg Indications: palpitations, HTN, HLD, DM, PAD 2D Dimensions LVOT 1.79 cm (M/F) 1.5-2.5 LA Volume 22.60 mL LA Volume Index 12.42 mL/m2 (M/F) 16-34 M-Mode Dimensions RVDd 2.62 cm (0.9-2.6) LA Diam 3.89 cm (1.9-4.0) LVDd 5.51 cm (3.5-5.7) Ao Diam 2.55 cm (2.0-3.7) LVDs 4.33 cm (3.5-5.7) IVSd 0.76 cm (0.6-1.1) PWd 1.03 cm (0.6-1.1) EF (Teich) 43.00% FS 21.40% EDV (Teich) 148.00 mL ESV (Teich) 84.40 mL LV Diastology E Decel Time 290.00 (160-240 msec) E/A Ratio 0.7 MED E' 4.10 (< 7 cm/sec) E'/MED E' Ratio 18.54 (>14) LAT E' 5.30 (<10 cm/sec) E/LAT E' Ratio 14.34 (>14) Mitral Valve MV E Max Ramon. 76.00 (40-130 cm/s) MV A Velocity 107.00 (40-130 cm/s) E/A Ratio 0.71 MV Decel. Time 290.00 (160-240 ms) MV PHT 85.00 ms Left Ventricle The left ventricle is normal size. The left ventricular systolic function is normal. The left ventricular ejection fraction is within the normal range. There is increased LV wall thickness. There is normal LV segmental wall motion. The left ventricular diastolic function is normal. LVEF is 55-60%. Right Ventricle The right ventricle is mildly dilated. The right ventricular systolic function is normal. Atria The left atrium size is normal. The right atrium size is normal. Aortic Valve The aortic valve opens well. There is no aortic valvular stenosis. No aortic regurgitation is present. Mitral Valve The mitral valve is normal in structure. No evidence of mitral valve stenosis. Mild mitral regurgitation. Tricuspid Valve The tricuspid valve leaflets are thin and pliable. Trace tricuspid regurgitation. There is insufficient TR jet to estimate RVSP. Pulmonic Valve The pulmonary valve is normal in structure. Trace pulmonic regurgitation. Great Vessels The aortic root is normal in size. The ascending aorta is normal in size. IVC is normal in size and collapses >50% with inspiration. Pericardium There is no pericardial effusion. Other Information Study Quality: Technically Difficult Conclusion This was a technically difficult study due to poor accoustic windows. Normal biventricular systolic function. Mild RV dilation. Mild MR. Electronically signed by : Lissett Vicente, 08/03/2023 14:26:54
[2023-07-29 13:36] LABS: Basophils % 0.5 % (0.1-2.0); Eosinophils # 0.1 K/mm3 (0.0-0.4); Eosinophils % 3.7 % (0.1-12.0); Hematocrit 36.4 % (37.0-47.0); Hemoglobin 11.4 g/dL (12.2-16.2); Lymphocytes # 1.1 K/mm3 (0.7-4.5); Lymphocytes % 28.8 % (10-50); Mean Corpuscular HGB Conc 31.3 g/dL (31.8-35.4); Mean Corpuscular Hemoglobin 29.7 pg (27.0-31.2); Mean Corpuscular Volume 94.9 fl (81-99); Monocytes # 0.2 K/mm3 (0.1-1.0); Monocytes % 5.6 % (1.7-9.3); Neutrophils # 2.3 K/mm3 (1.8-7.8); Neutrophils % 61.4 % (37.0-80.0); Platelet Count 291 K/mm3 (142-424); Red Blood Count 3.84 M/mm3 (4.20-5.40); White Blood Count 3.7 K/mm3 (4.8-10.8)
[2023-07-29 15:04] LABS: Alanine Aminotransferase 23 U/L (12-78); Albumin Level 3.9 g/dl (3.5-5.0); Albumin/Globulin Ratio 1.5 (1.1-1.8); Alkaline Phosphatase 85 U/L (38-126); Anion Gap 17.2 mEq/L (5-15); Aspartate Amino Transferase 34 U/L (14-36); Bilirubin,Total 0.3 mg/dl (0.2-1.3); Blood Urea Nitrogen 24 mg/dl (7-17); Calcium 9.2 mg/dl (8.4-10.2); Carbon Dioxide 24 mmol/L (22.0-30.0); Chloride 106 mmol/L (98-107); Estimated Glomerular Filt Rate 44 ml/min (>60); GFR (African American) 53 ML/MIN (>60); Globulin 2.6 g/dL (1.3-3.2); Glucose 123 mg/dl (74-100); Potassium 4.2 mmoL/L (3.5-5.1); Sodium 143 mmol/L (136-145); Total Protein,Serum 6.5 g/dl (6.3-8.2)
== END ==
PROVIDERS: PCP Internal Medicine; Visit Provider Physician Assistant
DX: E78.5 Hyperlipidemia, unspecified (principal); I10 Essential (primary) hypertension; R00.2 Palpitations; R60.0 Localized edema; I25.10 Atherosclerotic heart disease of native coronary artery without angina pectoris
CPT/HCPCS: 36415; 80053; 85025; 93306

== ENCOUNTER → 2023-08-08 06:41 | Outpatient (CLI) | payer MEDICARE, OTHER, SELFPAY ==
--- NOTE | 2023-08-08 06:46 | NM_ITS ---
APPROVED REPORT Exam: Nuclear Stress Test Indication: HTN, DM, HYPERLIPIDEMIA, FM HX, SYNCOPE, FATOGUE Patient Location: Outpatient Stress Tech: Radha Simmons [place] Tech:Bharti Loomis FELIPECodie RT (R)(N)(M) Ht: 5 ft 3 in Wt: 168 lbs Bra Size: C HR: 72 bpm BP: 164/64 mmHg BSA: 1.80 m2 Rhythm: NSR TID: 1.39 BMI: 29.7 History: HTN, DM, HYPERLIPIDEMIA, FM HX, SYNCOPE, FATOGUE Procedure: Patient received 0.4 mg of intravenous Lexiscan, resting heart rate 72 bpm, resting blood pressure 164/64 mmHg, with Lexiscan maximum heart rate achieved was 87 bpm which is % of the maximum predicted heart rate and blood pressure was 161/58 mmHg. With Lexiscan, patient denied any complaint of chest pain. Cardiac Stress and Resting SPECT Images: Cardiac Stress and Resting SPECT images were obtained using technetium 99m Myoview 30.2 mCi stress and 10.45 mCi at rest. Resting and stress imaging in supine and prone positions demonstrate no evidence of focal fixed or reversible perfusion defects. There is increased transient ischemic dilatation ratio (TID 1.39), suggestive of possible balanced ischemia or multivessel disease. Gated imaging demonstrates normal global and regional LV systolic function. LVEF is calculated at 64%. Conclusion: No evidence of focal fixed or reversible perfusion defects. Increased transient ischemic dilatation ratio (TID 1.39), suggestive of possible balanced ischemia or multivessel disease. Gated imaging demonstrates normal global and regional LV systolic function. LVEF is calculated at 64%. Electronically signed by : Lissett Vicente MD 08/14/2023 17:11:06
--- NOTE | 2023-08-08 09:45 | CA_ITS ---
APPROVED REPORT Exam: Pharmacologic Technologist: Radha Simmons Ht: 5 ft 3 in Wt: 172 lbs BSA: 1.81 m2 HR: 72 bpm BP: 164/64 mmHg Rhythm: NSR Indications: Hypertension, Palpitations Medical History Medications: Amlodipine,,,,, Levothyroxine,,,,, Aspirin,,,,, Metoprolol,,,,, Metformin,,,,, Gabapentin,,,,, Losartan,,,,, Allopurinol,,,,, Atorvastatin,,,,, Glipizide,,,,, Plavix,,,,, FeNOfibrate,,,,, Stress Test Details Test: LEXISCAN HR Resting HR: 75 bpm Max Heart Rate (APMHR): 144 bpm Max HR Achieved: 88 bpm Target HR (85% APMHR): 122 bpm % of APMHR: 61 Recovery HR: 80 bpm BP Resting BP: 164.0/64.0 mmHg Max BP: 170.0/66.0 mmHg Recovery BP: 152.0/60.0 mmHg ECG Resting ECG: Normal sinus rhythm Stress ECG: No ST changes Arrhythmia: PACs, PVCs Clinical Exercise duration: 04:01 min Highest Stage Achieved: Stress ECG Conclusion Symptoms: Dyspnea, nausea Arrhythmias/Ectopy: PACs, PVC's ST-T Changes: No significant ST changes Conclusion: Unremarkable Lexiscan stress test. Myoview images are reported separately. Test Summary REST . . . . . . . Resting REST 04:30 . . 75 . 164/ 64 . . Stage 1 . . . . . . . Myoview Injected Stage 1 . . . . . . . Stage held Stage 1 01:00 . . 79 . . . . Stage 1 02:00 . . 85 . . . . Stage 1 . . . . . . . Stage resumed Stage 1 02:39 . . 84 . 161/ 58 . . Stage 2 01:00 . . 82 . . . . Stage 3 00:22 . . 81 . 170/ 66 . Stop exercise at 04:01 RECOVERY 01:00 . . 86 . . . . RECOVERY 02:00 . . 79 . 159/ 63 . . RECOVERY 03:00 . . 83 . 152/ 60 . . RECOVERY 03:19 . . 81 . 152/ 60 . . Electronically signed by : Lissett Vicente MD 08/14/2023 17:08:53
== END ==
PROVIDERS: PCP Internal Medicine; Visit Provider Physician Assistant
DX: E78.5 Hyperlipidemia, unspecified (principal); I10 Essential (primary) hypertension; I20.8 Other forms of angina pectoris; I73.9 Peripheral vascular disease, unspecified
CPT/HCPCS: 78452; 93017; A9502; J2785

== ENCOUNTER → 2023-08-30 10:44 | Outpatient (CLI) | payer MEDICARE, OTHER, SELFPAY ==
--- NOTE | 2023-08-30 10:57 | XR_ITS ---
FINAL REPORT CLINICAL HISTORY: CHEST WALL PAIN FINDINGS: Two views of the chest were obtained. The heart size and pulmonary vascularity are within normal limits. The mediastinum is normal. No acute pulmonary abnormality is identified. There is no pneumothorax. The bony thorax is intact. IMPRESSION: No active cardiopulmonary disease. Reviewed, Interpreted and Dictated by Cecil Black III, MD Transcribed by Maria Elena Hobbs Authenticated and [facility]
== END ==
LOC: LAB 10:47 → RAD 10:48
PROVIDERS: PCP Internal Medicine; Visit Provider Internal Medicine
DX: R07.89 Other chest pain (principal)
CPT/HCPCS: 71046

== ENCOUNTER 2023-09-07 06:56 | Outpatient (CLI) | payer MEDICARE, OTHER, SELFPAY ==
[2023-09-07] VITALS (11 sets, daily range): BP systolic 151–207; BP diastolic 67–87; PULSE 63–73; RESP 16–18; TEMP 36.2; O2SAT 94–100; BMI 29.9
--- NOTE | 2023-09-07 07:00 | CT_ITS ---
APPROVED REPORT Supervisor Electronics Inspection: CLINICAL INDICATION Chest Pain TECHNIQUE Image Acquisition: A 128 slice MDCT scanner ([place] View) was used for data acquisition. A noncontrast coronary calcium scan was performed. A CT attenuation threshold of 130 Hounsfield units (HU) was used for the detection of calcium in contiguous voxels of 1 sq mm in area to be counted as individual lesions. Bolus tracking in the ascending aorta with a threshold of 180 HU was performed. Immediately afterwards, ECG synchronized cardiac CT was then performed from the cardiac base to apex using retrospective gating with ECG tube current modulation. A total of 85 mL of Isovue 370 mg/mL contrast medium was administered at 5 mL/sec followed by a saline flush using a biphasic injection protocol. A tube voltage of 120 KVp was used. The patient received the following medications prior to the cardiac CT. 50 mg of oral metoprolol 20 mg of intravenous metoprolol. 0.8 mg of sublingual nitroglycerin. The average heart rate at the time of acquisition was 67 bpm and regular. Image Reconstruction Transaxial images were reconstructed at 0.67 mm slide thickness. Data was reviewed interactively on an advanced workstation capable of 2 and 3-dimensional displays in all conventional reconstruction formats, including multiplanar reformations, maximum intensity projections, curved multiplanar reformations, and volume rendered reconstructions. When applicable, selected routine images describing the relevant coronary anatomy and pathology were saved and sent to PACS. Complications None Technical Quality Overall image quality was suboptimal Coronary artery opacification was fair. Extensive calcification is present, resulting in blooming artifact. Total DLP (Dose-Length Product) is 1269.1 mGy-cm. The reported value represents the total of one or more individual components during the CT acquisition of this date and at this time, and as such, the same value may appear in more than one CT report depending on the interpreting/reporting physicians. COMPARISON None FINDINGS CT Coronary Calcium Scoring LMA (Left Main Artery) = 369 LAD (Left Anterior Descending) = 1472 LCX (Left Coronary Circumflex) = 17 RCA (Right Coronary Artery) = 837 Total Calcium Score = 2695 using the AJ-130 method. The observed calcium score of 2695 is > 95th percentile for subjects of the same age, sex, and race/ethnicity. The interpretation of the calcium heart score is based on the following continuum*: 0 = no calcified plaque detected (risk of coronary artery disease is very low ??? less than 5%) 1-10 = calcium detected in extremely minimal levels (risk of coronary diseases is still low ??? less than 10%) 11-100 = mild levels of plaque detected with certainty (mild or minimal narrowing of heart arteries is likely) 101-400 = definite,at least moderate levels of plaque detected (relatively high risk of a heart attack within 3-5 years) >401-999 = extensive levels of plaque detected (high risk of heart attack, high levels of vascular disease are present, high likelihood of at least one significant coronary narrowing) *The calcium heart score quantifies the burden of coronary calcification/plaque in the coronary arteries. The calcium heart score is not able to evaluate the presence or burden of non-calcified (i.e. soft) plaque. There is also identifiable calcification in the aortic valve, mitral annulus, and ascending and descending aorta. Coronary CT Angiography Coronaries have normal origin and proximal course. The coronary arterial system is right dominant. Note: Stenosis is reported as maximum percentage diameter stenosis. Stenosis grading is reported using the following scheme: Quantitativ
[2023-09-07 07:50] LABS: POC Glucose,Bedside 94 (70-110)
[2023-09-07 07:54] LABS: Chloride 102 mmol/L (98-107); Sodium 140 mmol/L (136-145)
[2023-09-07 07:55] LABS: Potassium 3.8 mmoL/L (3.5-5.1)
[2023-09-07 07:57] LABS: Blood Urea Nitrogen 22 mg/dl (7-17); Creatinine Clearance Estimated 58 mL/min (50-200); Estimated Glomerular Filt Rate 54 ml/min (>60); GFR (African American) 65 ML/MIN (>60)
[2023-09-07 07:58] LABS: Anion Gap 11.8 mEq/L (5-15); Calcium 8.7 mg/dl (8.4-10.2); Carbon Dioxide 30 mmol/L (22.0-30.0); Glucose 90 mg/dl (74-100)
== END 2023-09-07 10:50 | disposition home or self-care (01) ==
PROVIDERS: PCP Internal Medicine; Visit Provider Physician Assistant
DX: I20.89 Other forms of angina pectoris (principal); Z79.899 Other long term (current) drug therapy
CPT/HCPCS: 75574; 80048; 82962; Q9967

== ENCOUNTER 2023-09-21 14:51 | Observation (INO) | payer MEDICARE, OTHER, SELFPAY ==
[2023-09-21] VITALS (16 sets, daily range): BP systolic 144–222; BP diastolic 56–91; PULSE 63–74; RESP 16–19; TEMP 36.9–37.4; O2SAT 90–98; BMI 30.2; BMI 30.3
--- NOTE | 2023-09-21 07:11 | IR_ITS ---
APPROVED REPORT Patient Location: Inpatient PROCEDURES Left heart catheterization Left ventriculogram Selective coronary angiogram INDICATION Coronary artery disease, Angina pectoris Informed consent was obtained prior to the procedure. COMPLICATIONS None Estimated Blood Loss: Less than 10 mls TECHNIQUE One percent lidocaine used to anesthetize the right anterior aspect of the wrist. The right radial artery was accessed via the Seldinger technique. A 6 Montserratian sheath was placed in the right radial artery. 2.5 mg of Verapamil, 800 mcg of nitroglycerin, 1mg Lidocaine and 5000 U Heparin were given through the arterial sheath. The papa catheter was also used to perform left heart catheterization, left ventriculogram and selective coronary angiogram. A 4 Montserratian JL 4 catheter was used to perform left coronary artery angiography due to intense spasm along the radial and brachial artery. The spasm did not appropriately respond after 2400 mcg of intra-arterial nitroglycerin. The JR4 catheter was used to perform adequate diagnostic angiography ANGIOGRAPHIC RESULTS The left main artery Has an ostial proximal eccentric 70 to 80% calcified stenosis The left anterior descending artery Has proximal 10 to 20% stenosis with an additional proximal calcified concentric 60 to 70% stenosis. The remaining LAD and diagonal artery is widely patent with minimal disease The circumflex artery Gives rise to a moderate-sized ramus intermedius which has proximal and mid vessel 40% stenoses. Distal to the takeoff of the ramus intermedius the circumflex artery has a calcified eccentric 80% stenosis. This supplies a small to medium sized first obtuse marginal artery and a small to medium sized bifurcating distal obtuse marginal artery system The right coronary artery Is dominant and has an ostial 40% stenosis with mid vessel distal calcified 40 to 50% stenoses The MORRISON ventriculogram reveals Not performed The left ventricular end-diastolic pressure Not measured IMPRESSION Diffuse calcific disease as described above PLAN 1. Recommend either surgical or percutaneous revascularization. I believe the left main artery and proximal LAD can easily be stented and revascularized. I would likely continue treating the circumflex artery and right coronary artery medically. 2. Patient may also be a candidate for bypass surgery however will defer to primary cardiology treatment team to decide revascularization options 3. LDL less than 55 to be achieved with high intensity statin 4. Avoidance of tobacco products 5. Risk factor modification Electronically signed by : Harjit Weston MD 09/21/2023 11:18:56
[2023-09-21 09:20] LABS: Basophils % 0.5 % (0.1-2.0); Eosinophils # 0.1 K/mm3 (0.0-0.4); Eosinophils % 3.2 % (0.1-12.0); Hematocrit 37.1 % (37.0-47.0); Hemoglobin 12.5 g/dL (12.2-16.2); Lymphocytes # 1.3 K/mm3 (0.7-4.5); Mean Corpuscular HGB Conc 33.6 g/dL (31.8-35.4); Mean Corpuscular Hemoglobin 31.4 pg (27.0-31.2); Mean Corpuscular Volume 93.4 fl (81-99); Mean Platelet Volume 8.4 fl (7.4-10.4); Monocytes # 0.3 K/mm3 (0.1-1.0); Monocytes % 7.4 % (1.7-9.3); Neutrophils # 2.4 K/mm3 (1.8-7.8); Neutrophils % 57.9 % (37.0-80.0); Platelet Count 214 K/mm3 (142-424); Red Blood Count 3.97 M/mm3 (4.20-5.40); Red Cell Distribution Width 14.6 % (11.5-17.5); White Blood Count 4.1 K/mm3 (4.8-10.8)
[2023-09-21 09:33] LABS: INR 0.99 (0.9-1.1); Prothrombin Time 10.7 seconds (10.1-12.5)
[2023-09-21 09:34] LABS: Anion Gap 12.3 mEq/L (5-15); Blood Urea Nitrogen 22 mg/dl (7-17); Carbon Dioxide 27 mmol/L (22.0-30.0); Chloride 106 mmol/L (98-107); Creatinine Clearance Estimated 49 mL/min (50-200); Estimated Glomerular Filt Rate 44 ml/min (>60); GFR (African American) 53 ML/MIN (>60); Glucose 106 mg/dl (74-100); Potassium 3.3 mmoL/L (3.5-5.1); Sodium 142 mmol/L (136-145)
--- NOTE | 2023-09-21 14:27 | SUR.PHASEII ---
1400- spoke with Alex Finch RN in laborer cutting tool regarding family requesting to speak with dr. garsia post procedure. 1425- Pebbles Castellano RN spoke with Melinda Black RN regarding family requesting to speak with Dr. Garsia post procedure, again.
--- NOTE | 2023-09-21 14:39 | SUR.PHASEII ---
Dr. Weston at bedside 1430. pt now to be admitted. spoke with Meghan RN in Care Management she stated Dr. Weston needs to call the hospitalist. spoke with Alex Finch RN regarding this and she is to tell Dr. Weston.
--- NOTE | 2023-09-21 15:00 | SUR.PHASEII ---
report given to Izabel Andres RN
--- NOTE | 2023-09-21 15:08 | PC.NURSE ---
arrived by stretcher from surgery
--- NOTE | 2023-09-21 15:11 | HMH.PHAINT1 ---
Pharmacy Intervention Comments: MEDICATION RECONCILIATION COMPLETED ON PATIENT USING EXTERNAL FILL HISTORY FROM PHARMACY, LIST FROM MOST RECENT CARDIOLOGY VISIT, AND VARSHA REPORT. -ARNIE SERRANO, PHARMD
--- NOTE | 2023-09-21 15:39 | EXP.CARD.CON ---
History of Present Illness History of Present Illness Consult date: 09/21/23 Requesting physician: Anthony Gurrola Consult reason: chest pain Chief complaint: CAD Additional Medical History:: 1. Diabetes mellitus 2. Peripheral arterial disease A. Abnormal NINA, 06/2023, right at 1.1, left 0.6 B. Lower extremity angiogram, 07/19/2023, lithotripsy of the left popliteal artery with drug-coated balloon angioplasty. Normal renals bilaterally. Severe infrageniculate disease noted. C. Carotid ultrasound, 07/13/2023, less than 50% carotid stenosis bilaterally. 3. Hypertension A. Echocardiogram 08/03/2023, normal BiV systolic function with mild RV dilatation and mild MR. 4. CAD A. Lexiscan Myoview, 08/08/2023, no fixed or reversible defects. TID of 1.39 noted with EF of 64%. B. CCTA, 09/07/2023, CAC of 2695 noted with severe calcification noted in the left main, LAD and RCA arteries. C. LHC, 09/21/2023, ostial left main with 70-80% stenosis, Prox LAD with 60-70% stenosis, circumflex with 40% mid vessel stenosis after giving rise to a ramus. Ramus has a 80% stenosis proximally. RCA has a 40 to 50% stenosis in the mid vessel. 5. History of GI bleed related to anticoagulation during chemotherapy. Patient is unsure of the medication she was taking. The source of the bleeding was never identified. Records incomplete and not available at this time History of present illness: 78-year-old white female presented to the outpatient cardiac Yard Motor Operator for procedure yesterday with subsequent significant finding of multivessel disease as noted above. Patient was admitted for observation/stabilization and discussion of coronary stenting versus CABG. This AM she is feeling well with no chest pain. She understands her options of stenting vs CABG and states she has watched family members go through CABG and she is not willing to go that route. [facility] Disclaimer: The information contained in this section may have been updated after the patient was seen, as this information can be updated by other users. Medical History (Updated 09/21/23 @ 15:53 by VIGNESH Lopes) Abnormal ankle brachial index (NINA) Abnormal stress test Anxiety Atypical angina Breast cancer Carotid bruit Claudication Colon cancer Decreased pedal pulses Diabetes mellitus, type 2 Elevated coronary artery calcium score Hemorrhoid History of anemia History of cataract HLD (hyperlipidemia) HTN (hypertension) Hypothyroid Liver cancer Peripheral vascular disease Thyroid cancer Surgical History H/O dilation and curettage H/O lumpectomy History of appendectomy History of colon resection History of surgery of liver History of thyroid surgery Hx of cataract surgery Hx of cholecystectomy Peripheral vascular angioplasty status with implants and grafts Family History Other CHF (congestive heart failure) Heart disease Stroke Social History Smoking Status: Never smoker alcohol intake: never current occupational status: retired Travel in the last 8 weeks: None caffeine: Yes Review of Systems Review of Systems Review of systems:: pertinent systems reviewed and negative unless documented below *Cardiovascular Cardiovascular: Reports chest pain Exam Data for Last 24 hours Vital signs and Labs for Last 24 Hours: Temp Pulse Resp BP Pulse Ox O2 Del Method O2 Flow Rate 98.8 F 71 19 169/73 H 96 Room Air 4 09/21/23 15:15 09/21/23 15:15 09/21/23 15:15 09/21/23 15:15 09/21/23 15:15 09/21/23 15:26 09/21/23 11:30 Laboratory Results - last 24 hr 09/21/23 09:06: WBC 4.1 L, RBC 3.97 L, Hgb 12.5, Hct 37.1, MCV 93.4, MCH 31.4 H, MCHC 33.6, RDW 14.6, Plt Count 214, MPV 8.4, Neut % (Auto) 57.9, Lymph % (Auto) 31.0, [place] % (Auto) 7.4, Eos % (Auto) 3.2, Baso % (Auto) 0.5, Neut #
--- NOTE | 2023-09-21 18:05 | EXP.HP ---
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 According to the patient she presented to hospital for cardiac cath procedure. Patient was found to have significant coronary artery disease and was recommended CABG versus stenting. Patient otherwise denies chest pain shortness of breath nausea vomiting diarrhea constipation dysuria fevers and chills. Patient does not have any complaints at this time [facility] Disclaimer: The information contained in this section may have been updated after the patient was seen, as this information can be updated by other users. Medical History (Updated 09/21/23 @ 15:53 by VIGNESH Lopes) Abnormal ankle brachial index (NINA) Abnormal stress test Anxiety Atypical angina Breast cancer Carotid bruit Claudication Colon cancer Decreased pedal pulses Diabetes mellitus, type 2 Elevated coronary artery calcium score Hemorrhoid History of anemia History of cataract HLD (hyperlipidemia) HTN (hypertension) Hypothyroid Liver cancer Peripheral vascular disease Thyroid cancer Surgical History H/O dilation and curettage H/O lumpectomy History of appendectomy History of colon resection History of surgery of liver History of thyroid surgery Hx of cataract surgery Hx of cholecystectomy Peripheral vascular angioplasty status with implants and grafts Family History Other CHF (congestive heart failure) Heart disease Stroke Social History Smoking Status: Never smoker alcohol intake: never current occupational status: retired Travel in the last 8 weeks: None caffeine: Yes Review of Systems Review of Systems Review of systems (narrative): as per [facility] Meds Home Medications and Allergies Home Medications Medication Instructions Recorded Confirmed Type aspirin 81 mg tablet,delayed 81 mg PO DAILY Heart Health 12/19/17 09/21/23 History release ergocalciferol (vitamin D2) 1,250 50,000 unit PO WEEKLY Supplement 12/19/17 09/21/23 History mcg (50,000 unit) capsule (Vitamin D2) esomeprazole magnesium 40 mg 40 mg PO DAILY Acid Reflux 12/19/17 09/21/23 History capsule,delayed release metoprolol tartrate 100 mg tablet 100 mg PO BID High blood pressure 07/11/23 09/21/23 History atorvastatin 40 mg tablet 40 mg PO DAILY Cholesterol 08/15/23 09/21/23 History amlodipine 10 mg tablet 10 mg PO DAILY #90 tabs 09/13/23 09/21/23 Rx losartan 100 mg tablet 100 mg PO DAILY #90 tabs 09/13/23 09/21/23 Rx New Prescriptions to Start Prescriptions: Allergies Allergy/AdvReac Type Severity Reaction Status Date / Time levofloxacin [From LEVAQUIN] Allergy Unknown Verified 09/13/23 13:11 lisinopril [LISINOPRIL] Allergy Unknown Verified 09/13/23 13:11 rosuvastatin [From CRESTOR] Allergy Unknown Verified 09/13/23 13:11 citalopram Allergy Hallucinati Verified 09/13/23 13:11 ng enalaprilat [From Vasotec] Allergy Verified 09/13/23 13:11 sulfamethoxazole Allergy Verified 09/13/23 13:11 [From Bactrim] trimethoprim [From Bactrim] Allergy Verified 09/13/23 13:11 amlodipine [From Norvasc] AdvReac Verified 09/13/23 13:11 anastrozole [From Arimidex] AdvReac Verified 09/13/23 13:11 bacitracin AdvReac Verified 09/13/23 13:11 fluvastatin [From Lescol] AdvReac Verified 09/13/23 13:11 warfarin AdvReac Verified 09/13/23 13:11 Exam Data for Last 24 hours Vital signs and Labs for Last 24 Hours: Temp Pulse Resp BP Pulse Ox O2 Del Method O2 Flow Rate 98.8 F 71 19 169/73 H 96 Room Air 4 09/21/23 15:15 09/21/23 15:15 09/21/23 15:15 09/21/23 15:15 09/21/23 15:15 09/21/23 16:
--- NOTE | 2023-09-21 18:14 | EXP.HP ---
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 According to the patient she presented to hospital for cardiac cath procedure. Patient was found to have significant coronary artery disease and was recommended CABG versus stenting. Patient otherwise denies chest pain shortness of breath nausea vomiting diarrhea constipation dysuria fevers and chills. Patient does not have any complaints at this time [facility] Disclaimer: The information contained in this section may have been updated after the patient was seen, as this information can be updated by other users. Medical History (Updated 09/21/23 @ 15:53 by VIGNESH Lopes) Abnormal ankle brachial index (NINA) Abnormal stress test Anxiety Atypical angina Breast cancer Carotid bruit Claudication Colon cancer Decreased pedal pulses Diabetes mellitus, type 2 Elevated coronary artery calcium score Hemorrhoid History of anemia History of cataract HLD (hyperlipidemia) HTN (hypertension) Hypothyroid Liver cancer Peripheral vascular disease Thyroid cancer Surgical History H/O dilation and curettage H/O lumpectomy History of appendectomy History of colon resection History of surgery of liver History of thyroid surgery Hx of cataract surgery Hx of cholecystectomy Peripheral vascular angioplasty status with implants and grafts Family History Other CHF (congestive heart failure) Heart disease Stroke Social History Smoking Status: Never smoker alcohol intake: never current occupational status: retired Travel in the last 8 weeks: None caffeine: Yes Meds Home Medications and Allergies Home Medications Medication Instructions Recorded Confirmed Type aspirin 81 mg tablet,delayed 81 mg PO DAILY Heart Health 12/19/17 09/21/23 History release ergocalciferol (vitamin D2) 1,250 50,000 unit PO WEEKLY Supplement 12/19/17 09/21/23 History mcg (50,000 unit) capsule (Vitamin D2) esomeprazole magnesium 40 mg 40 mg PO DAILY Acid Reflux 12/19/17 09/21/23 History capsule,delayed release metoprolol tartrate 100 mg tablet 100 mg PO BID High blood pressure 07/11/23 09/21/23 History atorvastatin 40 mg tablet 40 mg PO DAILY Cholesterol 08/15/23 09/21/23 History amlodipine 10 mg tablet 10 mg PO DAILY #90 tabs 09/13/23 09/21/23 Rx losartan 100 mg tablet 100 mg PO DAILY #90 tabs 09/13/23 09/21/23 Rx New Prescriptions to Start Prescriptions: Allergies Allergy/AdvReac Type Severity Reaction Status Date / Time levofloxacin [From LEVAQUIN] Allergy Unknown Verified 09/13/23 13:11 lisinopril [LISINOPRIL] Allergy Unknown Verified 09/13/23 13:11 rosuvastatin [From CRESTOR] Allergy Unknown Verified 09/13/23 13:11 citalopram Allergy Hallucinati Verified 09/13/23 13:11 ng enalaprilat [From Vasotec] Allergy Verified 09/13/23 13:11 sulfamethoxazole Allergy Verified 09/13/23 13:11 [From Bactrim] trimethoprim [From Bactrim] Allergy Verified 09/13/23 13:11 amlodipine [From Norvasc] AdvReac Verified 09/13/23 13:11 anastrozole [From Arimidex] AdvReac Verified 09/13/23 13:11 bacitracin AdvReac Verified 09/13/23 13:11 fluvastatin [From Lescol] AdvReac Verified 09/13/23 13:11 warfarin AdvReac Verified 09/13/23 13:11 Exam Data for Last 24 hours Vital signs and Labs for Last 24 Hours: Temp Pulse Resp BP Pulse Ox O2 Del Method O2 Flow Rate 98.8 F 71 19 169/73 H 96 Room Air 4 09/21/23 15:15 09/21/23 15:15 09/21/23 15:15 09/21/23 15:15 09/21/23 15:15 09/21/23 16:32 09/21/23 11:30 Laboratory Results - last 24 hr 09/21/23 09:06: WBC 4.1 L, RBC 3.97
[2023-09-21 19:56] LABS: POC Glucose,Bedside 175 (70-110)
[2023-09-22] VITALS (25 sets, daily range): BP systolic 120–176; BP diastolic 56–79; PULSE 66–79; RESP 13–20; TEMP 36.6–37.1; O2SAT 92–98; BMI 31.5
--- NOTE | 2023-09-22 | IR_ITS ---
APPROVED REPORT Patient Location: Inpatient Rubber Splicer: MANDY Gunn RT (R) PROCEDURES Drug-eluting stent deployment to the ostial proximal left main artery Drug-eluting stent deployment to the proximal to mid LAD Drug-eluting stent deployment to the ostial circumflex artery Intravascular ultrasound to the left main artery INDICATION Coronary artery disease, Refusal to undergo bypass surgery Informed consent was obtained prior to the procedure. COMPLICATIONS None Estimated Blood Loss: Less than 10 ml TECHNIQUE One percent lidocaine was used to anesthetize the right groin. The right femoral artery was accessed via the Seldinger technique. A 6-Algerian sheath was placed in the right femoral artery. Therapeutic heparin was administered giving a therapeutic ACT and a JL 4 guide catheter was placed in left main artery followed by Choice PT extra-support wire being placed in the LAD. A 3.5 x 12 mm Chloe frontier stent was deployed at 24 veronique in the ostial proximal left main artery. Following this a a 2.5 x 26 mm Francesco frontier stent was then placed in the proximal to mid LAD and deployed at 20 veronique. Following this a 2.75 x 12 mm noncompliant balloon was deployed in the mid and proximal portion of the stent and postdilated at 24 veronique further post dilate the calcified stenosis. Wire was placed in the circumflex artery and a 2 mm compliant balloon was used to predilate the stenosis. An additional 2.5 compliant balloon was then used to predilate the stenosis and with the assistance of a guide liner a 2.5 x 15 mm Francesco frontier stent was placed in the ostial proximal portion of the circumflex artery and deployed at 24 veronique. Following this a 4 mm x 12 mm balloon was deployed into the left main artery to post dilate the eccentric calcified stenosis. Intravascular ultrasound probe was then placed into the left main artery which demonstrated calcified unreduced stenosis. A 4.5 x 12 mm noncompliant balloon was then deployed at 24 veronique further reducing the stenosis. There was an area that was not adequately stented therefore a 4 mm x 8 mm Francesco frontier stent was placed in the mid to distal left main artery and deployed at 24 veronique. A 5 mm x 12 mm noncompliant balloon was then deployed at 24 veronique in the ostial proximal midportion of the left main artery to further post dilate. Excellent angiographic results were obtained with a residual stenosis of 10% in the left main artery. At the end of procedure the apparatus was removed the groin is reprepped closure change sheath was removed hemostasis was achieved using Perclose device patient was transferred to the postop putting in stable condition IMPRESSION Successful stenting of the ostial proximal mid left main artery critical disease reduced to 10% with 2 drug-eluting stents postdilated with a 5 mm x 12 mm noncompliant balloon to 24 veronique Successful stenting of the proximal to mid LAD severe calcified disease reduced to less than 10% with 1 drug-eluting stent Successful stenting of the ostial proximal circumflex artery severe disease reduced to 0% with 1 drug-eluting stent PLAN 1. Dual antiplatelet therapy 2. Risk factor modification 3. Cardiac rehabilitation 4. Avoidance of tobacco products 5. LDL less than 55 to be achieved with high intensity statin Electronically signed by : Harjit Weston MD 09/22/2023 14:13:40
[2023-09-22 01:53] LABS: POC Glucose,Bedside 163 (70-110)
[2023-09-22 06:04] LABS: POC Glucose,Bedside 128 (70-110)
[2023-09-22 06:25] LABS: Basophils % 0.6 % (0.1-2.0); Eosinophils # 0.1 K/mm3 (0.0-0.4); Eosinophils % 3.3 % (0.1-12.0); Hematocrit 34.4 % (37.0-47.0); Hemoglobin 11.6 g/dL (12.2-16.2); Lymphocytes # 1.1 K/mm3 (0.7-4.5); Lymphocytes % 32.6 % (10-50); Mean Corpuscular HGB Conc 33.8 g/dL (31.8-35.4); Mean Corpuscular Hemoglobin 31.3 pg (27.0-31.2); Mean Corpuscular Volume 92.7 fl (81-99); Mean Platelet Volume 8.6 fl (7.4-10.4); Monocytes # 0.3 K/mm3 (0.1-1.0); Monocytes % 8.2 % (1.7-9.3); Neutrophils # 1.8 K/mm3 (1.8-7.8); Neutrophils % 55.2 % (37.0-80.0); Platelet Count 174 K/mm3 (142-424); Red Blood Count 3.71 M/mm3 (4.20-5.40); Red Cell Distribution Width 14.7 % (11.5-17.5); White Blood Count 3.3 K/mm3 (4.8-10.8)
[2023-09-22 06:42] LABS: Anion Gap 12.6 mEq/L (5-15); Blood Urea Nitrogen 24 mg/dl (7-17); Calcium 8.3 mg/dl (8.4-10.2); Carbon Dioxide 22 mmol/L (22.0-30.0); Chloride 110 mmol/L (98-107); Creatinine Clearance Estimated 51 mL/min (50-200); Estimated Glomerular Filt Rate 44 ml/min (>60); GFR (African American) 53 ML/MIN (>60); Glucose 136 mg/dl (74-100); Potassium 3.6 mmoL/L (3.5-5.1); Sodium 141 mmol/L (136-145)
--- NOTE | 2023-09-22 10:20 | PC.NURSE ---
Per patient, her home med list is not accurate. Patient states, I don't get half of my meds from [facility] pharmacy, my doctor doesn't order them here, [facility] . Passed information along to Dr. Gurrola in care rounds. Informed the pharmacy [facility] for an [facility] to find [facility] they [facility] not have a med list for the patients or any scripts.
--- NOTE | 2023-09-22 12:26 | EXP.PN ---
Subjective *Date: 09/22/23 *Time: 12:26 Interval history: Patient was seen and evaluated at the bedside. denies chest pain, shortness of breath, nausea, vomiting, abdominal pain. Patient does not have any complaints at this time. feels better overall Exam Data for Last 24 hours Vital signs and Labs for Last 24 Hours: Temp Pulse Resp BP Pulse Ox O2 Del Method O2 Flow Rate 97.9 F 70 18 167/65 H 96 Room Air 4 09/22/23 11:09/22/23 11:09/22/23 11:09/22/23 11:09/22/23 11:09/22/23 11:23 09/21/23 11:30 Laboratory Results - last 24 hr 09/21/23 19:39: POC Glucose 175 H 09/22/23 01:40: POC Glucose 163 H 09/22/23 05:40: Sodium 141, Potassium 3.6, Chloride 110 H, Carbon Dioxide 22, Anion Gap 12.6, BUN 24 H, Creatinine 1.20 H, Estimated Creat Clear 51, Estimated GFR 44 L, Est GFR ( Amer) 53 L, Glucose 136 H D, Calcium 8.3 L 09/22/23 05:54: POC Glucose 128 H 09/22/23 06:14: WBC 3.3 L, RBC 3.71 L, Hgb 11.6 L, Hct 34.4 L, MCV 92.7, MCH 31.3 H, MCHC 33.8, RDW 14.7, Plt Count 174, MPV 8.6, Neut % (Auto) 55.2, Lymph % (Auto) 32.6, [place] % (Auto) 8.2, Eos % (Auto) 3.3, Baso % (Auto) 0.6, Neut # (Auto) 1.8, Lymph # (Auto) 1.1, [place] # (Auto) 0.3, Eos # (Auto) 0.1, Baso # (Auto) 0.0 I & O for Last 24 hours: Intake & Output 09/19/23 09/20/23 09/21/23 09/22/23 23:59 23:59 23:59 23:59 Intake Total 610 / 610 200 / 200 Output Total 0 / 0 0 / 0 Balance 610 / 610 200 / 200 Weight 77.763 kg 80.739 kg Constitutional Constitutional: no acute distress *Routine HEENT Exam Head: Present normocephalic Eye: Present EOMI and PERRL ENT: Present mucous membranes moist *Routine Neck Exam Neck: Present supple; Absent lymphadenopathy *Routine Respiratory Exam Respiratory: Present CTA bilaterally *Routine Cardiovascular Exam Cardiovascular: Present RRR *Routine Abdominal Exam Abdominal: Present soft and normoactive bowel sounds; Absent tenderness *Routine Extremities Exam Extremities: Absent cyanosis, clubbing or edema *Routine Skin Exam Skin: Present warm; Absent rash *Routine Neurological Exam Neurological: Present alert and oriented X3 Assessment and Plan *Assessment and plan (1) PAD (peripheral artery disease): Status: Acute Category: Medical Code(s): I73.9 - Peripheral vascular disease, unspecified (2) CAD (coronary artery disease): Status: Acute Qualifiers: Coronary Disease-Associated Artery/Lesion type: [place] artery [place] vs. transplanted heart: [place] heart Associated angina: with unspecified form of angina Qualified Code(s): I25.119 - Atherosclerotic heart disease of [place] coronary artery with unspecified angina pectoris Category: Medical Code(s): I25.10 - Atherosclerotic heart disease of [place] coronary artery without angina pectoris (3) Renal insufficiency: Status: Acute Category: Medical Code(s): N28.9 - Disorder of kidney and ureter, unspecified (4) Atypical angina: Status: Acute Category: Medical Code(s): I20.8 - Other forms of angina pectoris (5) Peripheral vascular disease: Status: Acute Category: Medical Code(s): I73.9 - Peripheral vascular disease, unspecified (6) HLD (hyperlipidemia): Status: Acute Qualifiers: Hyperlipidemia type: mixed hyperlipidemia Qualified Code(s): E78.2 - Mixed hyperlipidemia Category: Medical Code(s): E78.5 - Hyperlipidemia, unspecified (7) HTN (hypertension): Status: Acute Qualifiers: Hypertension type: primary hypertension Qualified Code(s): I10 - Essential (primary) hypertension Category: Medical Code(s): I10 - Essential (primary) hypertension Plan Patient is a 78-year-old female with past medical history of PAD CAD diabetes mellitus 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 According to the patient she presented to hospital for cardiac cath procedure.
--- NOTE | 2023-09-22 13:10 | PC.NURSE ---
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
[2023-09-22 14:39] LABS: CATHL Activated Clotting Time 275 SEC (74-125)
[2023-09-22 14:40] LABS: CATHL Activated Clotting Time > 400 SEC (74-125)
[2023-09-22 18:30] LABS: POC Glucose,Bedside 127 (70-110)
[2023-09-22 20:20] LABS: POC Glucose,Bedside 246 (70-110)
[2023-09-23] VITALS: PULSE 69
[2023-09-23 03:58] VITALS: BP 136/58; PULSE 70; RESP 18; TEMP 36.6; O2SAT 95; BMI 31.2
[2023-09-23 04:00] VITALS: PULSE 67
[2023-09-23 05:41] LABS: POC Glucose,Bedside 102 (70-110)
--- NOTE | 2023-09-23 05:49 | PC.NURSE ---
pt A&Ox4. RA. Right radial and right femoral cath access sites both dressed with tegaderm and gauze c/d/i. NSR. denies cp and soa. no other complaints t/o shift.
[2023-09-23 08:00] VITALS: BP 147/61; PULSE 74; PULSE 75; RESP 20; TEMP 37.2; O2SAT 96
--- NOTE | 2023-09-23 08:36 | PC.NURSE ---
COURTESY TECH NOTE; ROUNDED ON PT 0730, PT DENIED NEED FOR DRINK, ASSISTANCE WITH RESTROOM, AND NEED TO REPOSITION IN BED. CALL LIGHT WITHIN REACH, NO FURTHER REQUESTS AT THIS TIME [facility]
--- NOTE | 2023-09-23 08:49 | EXP.CARD.PN ---
Subjective Subjective Date: 09/23/23 Time: 08:50 Principal diagnosis: CAD Interval history: 78-year-old white female in bed in no acute distress. She states she feels great and is ready to go home. The burning sensation she had on her feet yesterday postprocedure has resolved. She does have diabetic neuropathy but this was different but it is resolved now. Exam Data for Last 24 hours Vital signs and Labs for Last 24 Hours: Temp Pulse Resp BP Pulse Ox O2 Del Method O2 Flow Rate 99.0 F 74 20 147/61 H 96 Room Air 2 09/23/23 08:00 09/23/23 08:00 09/23/23 08:00 09/23/23 08:00 09/23/23 08:00 09/23/23 08:00 09/22/23 14:51 Laboratory Results - last 24 hr 09/22/23 13:18: Activated Clotting Time > 400 H* 09/22/23 13:43: Activated Clotting Time 275 H* D 09/22/23 18:07: POC Glucose 127 H 09/22/23 19:58: POC Glucose 246 H 09/23/23 05:26: POC Glucose 102 I & O for Last 24 hours: Intake & Output 09/20/23 09/21/23 09/22/23 09/23/23 11:59 11:59 11:59 11:59 Intake Total 810 / 810 1570 / 1570 Output Total 0 / 0 250 / 250 Balance 810 / 810 1320 / 1320 Weight 171 lb 178 lb 176 lb 7 oz Constitutional Constitutional: no acute distress *Routine Respiratory Exam Respiratory: Present CTA bilaterally *Routine Cardiovascular Exam Cardiovascular: Present RRR *Routine Neurological Exam Neurological: Present alert, oriented X3 and CN II-XII intact Progress Note: A&P Assessment and plan (1) PAD (peripheral artery disease): Status: Acute (2) CAD (coronary artery disease): Status: Acute (3) Renal insufficiency: Status: Acute (4) Atypical angina: Status: Acute (5) Peripheral vascular disease: Status: Acute (6) HLD (hyperlipidemia): Status: Acute (7) HTN (hypertension): Status: Acute Assessment and Plan Assessment and Plan for All Diagnoses:: 1. Severe CAD by cardiac catheterization 09/21/2023 2 JOLANTA to left main, 1 JOLANTA to mid LAD, 1 JOLANTA to ostial circumflex, Continue aspirin Add Plavix 75 mg daily 2. Hypertension Continue amlodipine, losartan and metoprolol 3. Hyperlipidemia, goal LDL less than 55 Continue atorvastatin LDL was 120 on 07/27/2023 Consider adding Repatha as outpatient 4. Renal insufficiency with creatinine 1.2 and GFR 44 Gentle hydration repeat BMP today before discharge 5. Mild hypokalemia 3.3 Resolved Stable from a cardiac standpoint for discharge home Home medication recommendations: Aspirin 81 mg daily Plavix 75 mg daily Amlodipine 10 mg daily Losartan 100 mg daily Metoprolol tartrate 100 mg twice daily Pantoprazole 40 mg daily Atorvastatin 40 mg daily Follow-up in our office in 1 week
--- NOTE | 2023-09-23 10:49 | EXP.DC.SUM ---
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 According to the patient she presented to hospital for cardiac cath procedure. Patient was found to have significant coronary artery disease and was recommended CABG versus stenting. Patient otherwise denies chest pain shortness of breath nausea vomiting diarrhea constipation dysuria fevers and chills. Patient does not have any complaints at this time Hospital Course Hospital Course Hospital Course: Patient was seen and evaluated at the bedside on the day of discharge. Patient is stable for discharge. Patient wishes to be discharged. All patient questions were answered and patient was given time to ask questions. Patient was discharged in stable condition. 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 According to the patient she presented to hospital for cardiac cath procedure. Patient was found to have significant coronary artery disease and was recommended CABG versus stenting. Patient otherwise denies chest pain shortness of breath nausea vomiting diarrhea constipation dysuria fevers and chills. Patient does not have any complaints at this time Assessment Severe CAD status post cardiac cath PAD Diabetes mellitus CKD stage III Hypertension Hyperlipidemia s/p cardiac cath, tolerated well, DC on ASA and plavix, f/u with cardiology as OP, patient cleared for discharge per cardiology Exam Data for Last 24 hours Vital signs and Labs for Last 24 Hours: Temp Pulse Resp BP Pulse Ox O2 Del Method O2 Flow Rate 99.0 F 74 20 147/61 H 96 Room Air 2 09/23/23 08:00 09/23/23 08:00 09/23/23 08:00 09/23/23 08:00 09/23/23 08:00 09/23/23 09:00 09/22/23 14:51 Laboratory Results - last 24 hr 09/22/23 13:18: Activated Clotting Time > 400 H* 09/22/23 13:43: Activated Clotting Time 275 H* D 09/22/23 18:07: POC Glucose 127 H 09/22/23 19:58: POC Glucose 246 H 09/23/23 05:26: POC Glucose 102 I & O for Last 24 hours: Intake & Output 09/20/23 09/21/23 09/22/23 09/23/23 23:59 23:59 23:59 23:59 Intake Total 610 / 610 1170 / 1170 600 / 600 Output Total 0 / 0 250 / 250 0 / 0 Balance 610 / 610 920 / 920 600 / 600 Weight 77.763 kg 80.739 kg 80.031 kg Constitutional Constitutional: no acute distress *Routine HEENT Exam Head: Present normocephalic Eye: Present EOMI and PERRL ENT: Present mucous membranes moist *Routine Neck Exam Neck: Present supple; Absent lymphadenopathy *Routine Respiratory Exam Respiratory: Present CTA bilaterally *Routine Cardiovascular Exam Cardiovascular: Present RRR *Routine Abdominal Exam Abdominal: Present soft and normoactive bowel sounds; Absent tenderness *Routine Extremities Exam Extremities: Absent cyanosis, clubbing or edema *Routine Skin Exam Skin: Present warm; Absent rash *Routine Neurological Exam Neurological: Present alert and oriented X3 Results Data Completed and Pending Labs on day of discharge: Labs from last 24 hours 09/23/23 09/22/23 09/22/23 05:26 19:58 18:07 Activated Clotting Time POC Glucose 102 246 H 127 H 09/22/23 09/22/23 13:43 13:18 Activated Clotting Time 275 H* D > 400 H* POC Glucose DS: Diagnosis Discharge Diagnosis (1) PAD (peripheral artery disease): Status: Acute Code(s): I73.9 - Peripheral vascular disease, unspecified (2) CAD (coronary artery disease): Status: Acute Code(s): I25.10 - Atherosclerotic heart disease of [place] coronary artery without angina pectoris Qualifiers: Coronary Disease-Associated Artery/Lesion type: [place] artery [place] vs. transplanted heart: [place] heart Associated angina: with unspecified form of angina Qualified Code(s): I2
[2023-09-23 10:58] LABS: Anion Gap 13.8 mEq/L (5-15); Blood Urea Nitrogen 23 mg/dl (7-17); Calcium 7.9 mg/dl (8.4-10.2); Carbon Dioxide 21 mmol/L (22.0-30.0); Chloride 107 mmol/L (98-107); Creatinine Clearance Estimated 50 mL/min (50-200); Estimated Glomerular Filt Rate 44 ml/min (>60); GFR (African American) 53 ML/MIN (>60); Glucose 240 mg/dl (74-100); Potassium 3.8 mmoL/L (3.5-5.1); Sodium 138 mmol/L (136-145)
--- NOTE | 2023-09-23 11:24 | HMH.PHAINT1 ---
Pharmacy Intervention Comments: DISCHARGE MEDICATION COUNSELING PROVIDED. DISCUSSED STOPPING LOSARTAN AND STARTING IRBESARTAN (DAILY, FOR BP, DIZZINESS,LIGHTHEADEDNESS, LOWER LIMB SWELLING, COUGH, LOW BP POSSIBLE) AND PLAVIX (BLOOD THINNER, DAILY, BLEED/BRUISE RISK/APPEARANCE/LOCATION, IF BLEEDING GO TO THE ER). PATIENT VERBALIZED NO QUESTIONS AT THIS TIME.
--- NOTE | 2023-09-26 15:25 | CARE MANAGER ---
Contacted patient related to hospital discharge. She states she is doing better but she didn't receive her thyroid medication while she was here even though she asked for it. She denies any other questions or concerns at this time. ANYA Preciado
== END 2023-09-23 12:13 | disposition home or self-care (01) ==
LOC: 2ND 14:51
PROVIDERS: Internal Medicine; Physician Assistant; Admitting Provider Internal Medicine; PCP Internal Medicine; Visit Provider Internal Medicine
DX: E78.5 Hyperlipidemia, unspecified (principal); I12.9 Hypertensive chronic kidney disease with stage 1 through stage 4 chronic kidney disease, or unspecified chronic kidney disease; R93.1 Abnormal findings on diagnostic imaging of heart and coronary circulation; R94.39 Abnormal result of other cardiovascular function study; I25.118 Atherosclerotic heart disease of native coronary artery with other forms of angina pectoris; E78.2 Mixed hyperlipidemia; I70.212 Atherosclerosis of native arteries of extremities with intermittent claudication, left leg; N18.30 Chronic kidney disease, stage 3 unspecified; E11.22 Type 2 diabetes mellitus with diabetic chronic kidney disease
CPT/HCPCS: 36415; 80048; 82962; 85025; 85347; 85610; 92928; 92978; 93454; 99152; 99153; C1725; C1760; C1769; C1876; C1894; C9600; G0378; J1644; Q9967

== ENCOUNTER → 2023-09-29 08:37 | Outpatient (CLI) | payer MEDICARE, OTHER, SELFPAY ==
[2023-09-29 09:01] LABS: Basophils % 0.6 % (0.1-2.0); Eosinophils # 0.2 K/mm3 (0.0-0.4); Eosinophils % 3.5 % (0.1-12.0); Hematocrit 34.5 % (37.0-47.0); Hemoglobin 11.8 g/dL (12.2-16.2); Lymphocytes # 1.3 K/mm3 (0.7-4.5); Lymphocytes % 26.8 % (10-50); Mean Corpuscular HGB Conc 34.2 g/dL (31.8-35.4); Mean Corpuscular Hemoglobin 31.7 pg (27.0-31.2); Mean Corpuscular Volume 92.7 fl (81-99); Mean Platelet Volume 9.6 fl (7.4-10.4); Monocytes # 0.4 K/mm3 (0.1-1.0); Monocytes % 7.5 % (1.7-9.3); Neutrophils # 2.9 K/mm3 (1.8-7.8); Neutrophils % 61.6 % (37.0-80.0); Platelet Count 254 K/mm3 (142-424); Red Blood Count 3.72 M/mm3 (4.20-5.40); Red Cell Distribution Width 14.6 % (11.5-17.5); White Blood Count 4.7 K/mm3 (4.8-10.8)
[2023-09-29 10:33] LABS: Anion Gap 14.8 mEq/L (5-15); Blood Urea Nitrogen 32 mg/dl (7-17); Calcium 9.3 mg/dl (8.4-10.2); Carbon Dioxide 30 mmol/L (22.0-30.0); Chloride 98 mmol/L (98-107); Estimated Glomerular Filt Rate 31 ml/min (>60); GFR (African American) 38 ML/MIN (>60); Glucose 119 mg/dl (74-100); Potassium 3.8 mmoL/L (3.5-5.1); Sodium 139 mmol/L (136-145)
== END ==
PROVIDERS: PCP Internal Medicine; Visit Provider Internal Medicine
DX: I25.10 Atherosclerotic heart disease of native coronary artery without angina pectoris (principal); I10 Essential (primary) hypertension; E78.5 Hyperlipidemia, unspecified
CPT/HCPCS: 36415; 80048; 85025

== ENCOUNTER → 2023-10-31 12:43 | Outpatient (CLI) | payer MEDICARE, OTHER, SELFPAY ==
[2023-10-31 14:02] LABS: Chloride 105 mmol/L (98-107); Potassium 4.8 mmoL/L (3.5-5.1); Sodium 141 mmol/L (136-145)
[2023-10-31 14:04] LABS: Blood Urea Nitrogen 27 mg/dl (7-17); Estimated Glomerular Filt Rate 37 ml/min (>60); GFR (African American) 44 ML/MIN (>60)
[2023-10-31 14:05] LABS: Anion Gap 10.8 mEq/L (5-15); Calcium 9.2 mg/dl (8.4-10.2); Carbon Dioxide 30 mmol/L (22.0-30.0); Glucose 60 mg/dl (74-100)
[2023-10-31 14:55] LABS: Hemoglobin A1C 5.8 % (4.0-6.0)
== END ==
PROVIDERS: PCP Internal Medicine; Visit Provider Internal Medicine
DX: E11.42 Type 2 diabetes mellitus with diabetic polyneuropathy (principal); E11.59 Type 2 diabetes mellitus with other circulatory complications; I25.10 Atherosclerotic heart disease of native coronary artery without angina pectoris; I73.9 Peripheral vascular disease, unspecified; E03.9 Hypothyroidism, unspecified; Z79.84 Long term (current) use of oral hypoglycemic drugs
CPT/HCPCS: 80048; 83036

== ENCOUNTER 2024-01-09 10:37 | Outpatient (CLI) | payer MEDICARE, OTHER, SELFPAY ==
--- NOTE | 2024-01-09 10:40 | CA_ITS ---
FINAL REPORT TECHNIQUE: Grayscale, color Doppler and duplex Doppler ultrasound of the kidneys, aorta and renal arteries was performed. Multiple velocities were measured. CLINICAL HISTORY: HTN COMPARISON: None FINDINGS: Aorta velocity: 122 cm/sec Right kidney: 11.1 cm. No evidence of hydronephrosis or mass Right intrarenal RI: 0.8 Right renal artery velocity: 171 cm/sec. Right RAR (Renal artery-Aortic Ratio): 1.4 Left Kidney: 11.5 cm. No evidence of hydronephrosis or mass. Left intrarenal RI: 0.7 Left renal artery velocity: 179.6 cm/sec. Left RAR (Renal Artery-Aortic Ratio): 1.5 IMPRESSION: The renal artery velocities are at the upper limit of normal, suggesting that the patient has borderline elevated renal artery stenosis. CT angiogram or postcontrast MR angiogram would be more sensitive for evaluation of possible renal artery stenosis. Reviewed, Interpreted and Dictated by Rubén Lerma MD Transcribed by Ifrah Aguilar Authenticated and [facility]
== END 2024-01-09 23:59 ==
PROVIDERS: PCP Internal Medicine; Visit Provider Nurse Practitioner Family
DX: I10 Essential (primary) hypertension (principal)
CPT/HCPCS: 93976

== ENCOUNTER 2024-01-31 07:45 | Outpatient (CLI) | payer MEDICARE, OTHER, SELFPAY ==
--- NOTE | 2024-01-31 07:49 | MM_ITS ---
PROCEDURE INFORMATION: Exam: MG Bilateral Screening 3D Mammography Exam date and time: 01/31/2024 7:47 AM Age: 78 years old Clinical indication: Screening mammogram TECHNIQUE: Imaging protocol: Bilateral Screening tomosynthesis and 2D mammography including computer-aided detection (CAD) when performed. COMPARISON: 1. MG MM DIG SCREENING MAMM BI W/CAD 07/27/2022 2:40 PM 2. MG MM DIG SCREENING MAMM BI W/CAD 06/08/2021 4:48 PM 3. MG MM DIG SCREENING MAMM BI W/CAD 07/02/2020 9:26 AM 4. MG DIG MAMM-SCREEN SUSHIL 05/01/2019 10:23 AM FINDINGS: MAMMOGRAPHY: Breast composition: There are scattered areas of fibroglandular density. Mass: None. Architectural distortion: Stable postoperative findings on the right. No new or suspicious architectural distortion. Calcifications: Stable benign-appearing calcifications are present. No new or suspicious cluster of microcalcifications have developed. Asymmetric density: No new or suspicious asymmetric density is present Skin thickening: None. Axillary adenopathy: None. IMPRESSION: No mammographic evidence of malignancy. Recommend annual screening mammography unless otherwise clinically indicated. ASSESSMENT: BI-RADS category 2: Benign.
[2024-01-31 15:12] LABS: Basophils % 0.6 % (0.1-2.0); Eosinophils # 0.1 K/mm3 (0.0-0.4); Eosinophils % 2.5 % (0.1-12.0); Hemoglobin 13.1 g/dL (12.2-16.2); Lymphocytes % 24.2 % (10-50); Mean Corpuscular HGB Conc 31.3 g/dL (31.8-35.4); Mean Corpuscular Hemoglobin 30.6 pg (27.0-31.2); Mean Platelet Volume 9.5 fl (7.4-10.4); Monocytes # 0.3 K/mm3 (0.1-1.0); Monocytes % 7.1 % (1.7-9.3); Neutrophils # 2.7 K/mm3 (1.8-7.8); Neutrophils % 65.6 % (37.0-80.0); Platelet Count 227 K/mm3 (142-424); Red Blood Count 4.29 M/mm3 (4.20-5.40); Red Cell Distribution Width 14.9 % (11.5-17.5); White Blood Count 4.2 K/mm3 (4.8-10.8)
[2024-01-31 15:35] LABS: Alanine Aminotransferase 20 U/L (12-78); Albumin Level 4.9 g/dl (3.5-5.0); Albumin/Globulin Ratio 1.9 (1.1-1.8); Alkaline Phosphatase 79 U/L (38-126); Anion Gap 15.8 mEq/L (5-15); Aspartate Amino Transferase 31 U/L (14-36); Bilirubin,Total 0.6 mg/dl (0.2-1.3); Blood Urea Nitrogen 31 mg/dl (7-17); Calcium 9.5 mg/dl (8.4-10.2); Carbon Dioxide 29 mmol/L (22.0-30.0); Chloride 102 mmol/L (98-107); Chol/HDL Ratio 5.7 (1-3.5); Cholesterol 273 mg/dl (140-200); Estimated Glomerular Filt Rate 37 ml/min (>60); GFR (African American) 44 ML/MIN (>60); Globulin 2.6 g/dL (1.3-3.2); Glucose 92 mg/dl (74-100); HDL Cholesterol 48 mg/dl (40-60); Potassium 3.8 mmoL/L (3.5-5.1); Sodium 143 mmol/L (136-145); Total Protein,Serum 7.5 g/dl (6.3-8.2)
[2024-01-31 15:38] LABS: Triglycerides 409 mg/dl (30-150)
[2024-01-31 16:02] LABS: Thyroid Stimulating Hormone 0.42 uIU/mL (0.465-4.68)
[2024-01-31 16:24] LABS: Hemoglobin A1C 6.1 % (4.0-6.0)
[2024-01-31 16:50] LABS: Creatinine,Urine Random 27 mg/dL (Not Estab.)
[2024-01-31 16:52] LABS: Microalbumin/Creatinine Ratio 292.9
== END 2024-01-31 23:59 ==
PROVIDERS: PCP Internal Medicine; Visit Provider Internal Medicine
DX: Z12.31 Encounter for screening mammogram for malignant neoplasm of breast (principal); E11.59 Type 2 diabetes mellitus with other circulatory complications; E11.42 Type 2 diabetes mellitus with diabetic polyneuropathy; E03.9 Hypothyroidism, unspecified; E78.5 Hyperlipidemia, unspecified; I10 Essential (primary) hypertension; Z85.038 Personal history of other malignant neoplasm of large intestine; Z85.3 Personal history of malignant neoplasm of breast
CPT/HCPCS: 77063; 77067; 80053; 80061; 82043; 82570; 83036; 84443; 85025

== ENCOUNTER 2024-02-15 10:00 | Outpatient (CLI) | payer MEDICARE, OTHER, SELFPAY ==
--- NOTE | 2024-02-15 10:02 | CT_ITS ---
FINAL REPORT CLINICAL HISTORY: RENAL ARTERIES COMPARISON: None FINDINGS: Post contrast axial imaging of the aorta and bilateral lower extremity was obtained and reviewed.This study was performed with techniques to keep radiation doses as low as reasonably achievable (ALARA). Individualized dose reduction techniques using automated exposure control or adjustment of mA and/or kV according to the patient''s size were employed. There is no evidence of aortic aneurysm. There is no evidence of aortic stenosis. The celiac axis and inferior mesenteric artery are patent without stenosis. There is mild stenosis of the origin of the superior mesenteric artery. There is no evidence of right renal artery stenosis, while there is mild left renal artery origin stenosis.. The iliac arteries are unremarkable, without stenosis. The internal iliac arteries are patent. Right: The right common femoral artery, deep femoral artery and superficial femoral artery are all patent, with approximately 50% stenosis of the proximal right common femoral artery. There is mild to moderate irregularity of the right SFA in the adductor canal with approximately 50% stenosis. There is short segment occlusion of the proximal right popliteal artery of approximately 1 cm in length. There is three-vessel runoff on the right side with a dominant posterior tibial artery which is patent into the foot. Left: The left common femoral artery, deep femoral artery and superficial femoral artery are all patent, without stenosis. There is approximately 50% stenosis of the left superficial femoral artery at the adductor canal. There is mild irregularity of the popliteal artery without occlusion. The anterior and posterior tibial and peroneal arteries are patent to the lower leg. There is three-vessel runoff with a dominant posterior tibial artery which remains patent into the foot. Review of the remaining abdomen and pelvis demonstrates no evidence of mass or adenopathy. There is mild fatty infiltration of the liver and the gallbladder has been surgically resected. There are postoperative changes along the posterior right lobe of the liver. There is a round low-attenuation focus in the fundus of the uterus measuring 4.2 cm in size, likely a uterine fibroid. There is no fluid collection or acute inflammatory process. 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 There is 50% stenosis of the proximal right common femoral artery, with mild to moderate irregularity in the adductor canal, and short segment occlusion in the proximal right popliteal artery approximately 1 cm in length. There is 50% stenosis of the left superficial femoral artery in the adductor canal and mild irregularity of the popliteal artery. Reviewed, Interpreted and Dictated by Rubén Lerma MD Transcribed by Ifrah Aguilar Authenticated and [facility]
[2024-02-15] MEDS: IOPAMIDOL-370 (76%);100ML BOTTLE 120 ML IV (10:56)
[2024-02-15] MEDS: 0.9 % SODIUM CHLORIDE 50 ML VIAL 100 ML IV (10:56)
[2024-02-15] MEDS: SODIUM CHLORIDE 0.9% 10ML SYR (RAD ONLY) 10 ML IV (10:56)
== END 2024-02-15 23:59 ==
LOC: RAD 10:02
PROVIDERS: PCP Internal Medicine; Visit Provider Nurse Practitioner Family
DX: I10 Essential (primary) hypertension (principal)
CPT/HCPCS: 75635; Q9967

== ENCOUNTER 2024-05-02 13:44 | Outpatient (CLI) | payer MEDICARE, OTHER, SELFPAY ==
[2024-05-02 13:45] LABS: Hemoglobin A1C 6.2 % (4.0-6.0)
[2024-05-02 14:26] LABS: Thyroid Stimulating Hormone 0.16 uIU/mL (0.465-4.68)
== END 2024-05-02 23:59 | disposition home or self-care (01) ==
LOC: LAB.DROPOF 13:44
PROVIDERS: PCP Internal Medicine; Visit Provider Internal Medicine
DX: E11.59 Type 2 diabetes mellitus with other circulatory complications (principal); E03.9 Hypothyroidism, unspecified; Z79.84 Long term (current) use of oral hypoglycemic drugs; Z79.899 Other long term (current) drug therapy
CPT/HCPCS: 83036; 84443

== ENCOUNTER 2024-08-20 14:39 | Outpatient (CLI) | payer MEDICARE, OTHER, SELFPAY ==
[2024-08-20 14:06] LABS: Hemoglobin A1C 5.9 % (4.0-6.0)
[2024-08-20 14:14] LABS: Alanine Aminotransferase 19 U/L (12-78); Albumin Level 4.1 g/dl (3.5-5.0); Albumin/Globulin Ratio 1.7 (1.1-1.8); Alkaline Phosphatase 97 U/L (38-126); Aspartate Amino Transferase 33 U/L (14-36); Bilirubin,Total 0.7 mg/dl (0.2-1.3); Blood Urea Nitrogen 16 mg/dl (7-17); Calcium 7.9 mg/dl (8.4-10.2); Carbon Dioxide 27 mmol/L (22.0-30.0); Chloride 107 mmol/L (98-107); Chol/HDL Ratio 4.2 (1-3.5); Cholesterol 185 mg/dl (140-200); Estimated Glomerular Filt Rate 48 ml/min (>60); GFR (African American) 58 ML/MIN (>60); Globulin 2.4 g/dL (1.3-3.2); Glucose 98 mg/dl (74-100); HDL Cholesterol 44 mg/dl (40-60); Sodium 139 mmol/L (136-145); Total Protein,Serum 6.5 g/dl (6.3-8.2); Triglycerides 287 mg/dl (30-150); VLDL Cholesterol 57 mg/dL (0-40)
[2024-08-20 14:26] LABS: Direct LDL Cholesterol 91.34 mg/dL (100-129)
[2024-08-20 14:27] LABS: Anion Gap 8.7 mEq/L (5-15); Potassium 3.7 mmoL/L (3.5-5.1)
[2024-08-20 14:46] LABS: Thyroid Stimulating Hormone 8.23 uIU/mL (0.465-4.68)
== END 2024-08-20 23:59 | disposition home or self-care (01) ==
LOC: LAB.DROPOF 14:41
PROVIDERS: PCP Internal Medicine; Visit Provider Internal Medicine
DX: E78.5 Hyperlipidemia, unspecified (principal); I10 Essential (primary) hypertension; N18.9 Chronic kidney disease, unspecified; E03.9 Hypothyroidism, unspecified; E11.59 Type 2 diabetes mellitus with other circulatory complications; I25.10 Atherosclerotic heart disease of native coronary artery without angina pectoris; I73.9 Peripheral vascular disease, unspecified; Z85.3 Personal history of malignant neoplasm of breast
CPT/HCPCS: 80053; 80061; 83036; 84443

== ENCOUNTER 2025-02-20 17:00 | Outpatient (CLI) | payer MEDICARE, OTHER, SELFPAY ==
[2025-02-20 17:35] LABS: Basophils % 0.5 % (0.1-2.0); Eosinophils # 0.1 K/mm3 (0.0-0.4); Eosinophils % 2.6 % (0.1-12.0); Hematocrit 34.6 % (37.0-47.0); Hemoglobin 11.2 g/dL (12.2-16.2); Lymphocytes % 26.3 % (10-50); Mean Corpuscular HGB Conc 32.4 g/dL (31.8-35.4); Mean Corpuscular Hemoglobin 30.1 pg (27.0-31.2); Mean Platelet Volume 10.8 fl (7.4-10.4); Monocytes # 0.3 K/mm3 (0.1-1.0); Monocytes % 8.2 % (1.7-9.3); Neutrophils # 2.4 K/mm3 (1.8-7.8); Neutrophils % 62.1 % (37.0-80.0); Platelet Count 197 K/mm3 (142-424); Red Blood Count 3.72 M/mm3 (4.20-5.40); Red Cell Distribution Width 14.7 % (11.5-17.5); White Blood Count 3.9 K/mm3 (4.8-10.8)
[2025-02-20 18:54] LABS: Creatinine,Urine Random 44 mg/dL (Not Estab.)
[2025-02-20 18:56] LABS: Microalbumin/Creatinine Ratio 175.6
[2025-02-20 20:11] LABS: Chloride 99 mmol/L (98-107)
[2025-02-20 20:12] LABS: Potassium 3.7 mmoL/L (3.5-5.1); Sodium 142 mmol/L (136-145)
[2025-02-20 20:14] LABS: Alanine Aminotransferase 20 U/L (12-78); Anion Gap 12.7 mEq/L (5-15); Aspartate Amino Transferase 36 U/L (14-36); Blood Urea Nitrogen 24 mg/dl (7-17); Carbon Dioxide 34 mmol/L (22.0-30.0); Estimated Glomerular Filt Rate 44 ml/min (>60); GFR (African American) 53 ML/MIN (>60)
[2025-02-20 20:15] LABS: Albumin/Globulin Ratio 1.6 (1.1-1.8); Alkaline Phosphatase 110 U/L (38-126); Bilirubin,Total 0.5 mg/dl (0.2-1.3); Calcium 8.6 mg/dl (8.4-10.2); Cholesterol 162 mg/dl (140-200); Globulin 2.5 g/dL (1.3-3.2); Glucose 97 mg/dl (74-100); HDL Cholesterol 54 mg/dl (40-60); Total Protein,Serum 6.5 g/dl (6.3-8.2); Triglycerides 233 mg/dl (30-150); VLDL Cholesterol 47 mg/dL (0-40)
[2025-02-20 20:26] LABS: Direct LDL Cholesterol 66.18 mg/dL (100-129)
[2025-02-20 20:46] LABS: Thyroid Stimulating Hormone 2.31 uIU/mL (0.465-4.68)
[2025-02-20 22:01] LABS: Hemoglobin A1C 5.6 % (4.0-6.0)
== END 2025-02-20 23:59 | disposition home or self-care (01) ==
LOC: LAB.DROPOF 02-21 09:53
PROVIDERS: PCP Internal Medicine; Visit Provider Internal Medicine
DX: E11.59 Type 2 diabetes mellitus with other circulatory complications (principal); E11.42 Type 2 diabetes mellitus with diabetic polyneuropathy; I10 Essential (primary) hypertension; E03.9 Hypothyroidism, unspecified; E78.5 Hyperlipidemia, unspecified
CPT/HCPCS: 80053; 80061; 82043; 82570; 83036; 84443; 85025

== ENCOUNTER 2025-06-04 16:41 | Outpatient (CLI) | payer MEDICARE, OTHER, SELFPAY ==
--- OUTSIDE RECORDS SUMMARY | 2025-06-04 16:43 | XMS_ITS | Clinical Summary ---
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 Phone Unavailable Primary Care Provider Unavailabl e Family History Medical History Relation Name Comments Stroke Brother Breast cancer Cousin Heart attack Father Colon cancer Other Relation Name Status Comments Brother Cousin Father Other Social History Tobacco Use Types Packs/Day Years Used Date Smoking Tobacco: Never Alcohol Use Standard Drinks/Week Comments No 0 (1 standard drink = 0.6 oz pur e alcohol) Comments Unknown Sex and Gender Information Value Date Recorded Sex Assigned at Not on file Legal Sex Female 7:48 PM EDT Gender Identity Not on file Sexual Orientation Not on file Last Filed Vital Signs Vital Sign Reading Time Taken Comments Blood Pressure - - Pulse - - Temperature - - Respiratory Rate - - Oxygen Saturation - - Inhaled Oxygen Concentration - - Weight 76.9 kg (169 lb 8.2 oz) 01/06/2016 2:19 P M EST Height 160 cm (5' 3 ) 01/06/2016 2:19 PM EST Body Mass Index 30.03 01/06/2016 2:19 PM EST Plan of Treatment Not on file
--- NOTE | 2025-06-04 17:00 | MM_ITS ---
PROCEDURE INFORMATION: Exam: MG Bilateral Screening 3D Mammography Exam date and time: 06/04/2025 4:53 PM Age: 80 years old Clinical indication: Screening examination. TECHNIQUE: Imaging protocol: Bilateral Screening tomosynthesis and 2D mammography including computer-aided detection (CAD) when performed. COMPARISON: 1. MG MM DIG SCREENING MAMM BI W/CAD 01/31/2024 7:47 AM 2. MG MM DIG SCREENING MAMM BI W/CAD 07/27/2022 2:40 PM FINDINGS: MAMMOGRAPHY: Breast composition: There are scattered areas of fibroglandular density. Mass: None. Architectural distortion: None. Calcifications: No suspicious calcifications. Asymmetric density: None. Skin thickening: None. Axillary adenopathy: None. IMPRESSION: No mammographic evidence of malignancy. Annual screening is recommended unless otherwise clinically indicated. ASSESSMENT: BI-RADS Category 1: Negative.
== END 2025-06-04 23:59 | disposition home or self-care (01) ==
LOC: RAD 16:42
PROVIDERS: PCP Internal Medicine; Visit Provider Internal Medicine
DX: Z12.31 Encounter for screening mammogram for malignant neoplasm of breast (principal); R92.323 Mammographic fibroglandular density, bilateral breasts
CPT/HCPCS: 77063; 77067

== ENCOUNTER 2025-08-26 09:40 | Outpatient (CLI) | payer MEDICARE, OTHER, SELFPAY ==
[2025-08-26 18:18] LABS: Hematocrit 35.9 % (37.0-47.0); Hemoglobin 11.3 g/dL (12.2-16.2); Immature Granulocytes % 0.5 %; Mean Corpuscular HGB Conc 31.5 g/dL (31.8-35.4); Mean Corpuscular Hemoglobin 29.7 pg (27.0-31.2); Mean Corpuscular Volume 94.5 fl (81-99); Nucleated Red Blood Cells % 0 %; Platelet Count 206 K/mm3 (142-424); Red Blood Count 3.80 M/mm3 (4.20-5.40); Red Cell Distribution Width-SD 48.3 fL; White Blood Count 4.3 K/mm3 (4.8-10.8)
[2025-08-26 19:07] LABS: Alanine Aminotransferase 18 U/L (12-78); Albumin Level 4.1 g/dl (3.5-5.0); Albumin/Globulin Ratio 2.0 (1.1-1.8); Alkaline Phosphatase 97 U/L (38-126); Anion Gap 16.6 mEq/L (5-15); Aspartate Amino Transferase 31 U/L (14-36); Bilirubin,Total 0.8 mg/dl (0.2-1.3); Blood Urea Nitrogen 25 mg/dl (7-17); Calcium 9.1 mg/dl (8.4-10.2); Carbon Dioxide 30 mmol/L (22.0-30.0); Chloride 98 mmol/L (98-107); Cholesterol 194 mg/dl (140-200); Creatinine,Serum 1.30 mg/dl (0.52-1.04); Estimated Glomerular Filt Rate 40 ml/min (>60); GFR (African American) 48 ML/MIN (>60); Globulin 2.1 g/dL (1.3-3.2); Glucose 113 mg/dl (74-100); HDL Cholesterol 36 mg/dl (40-60); Potassium 4.6 mmoL/L (3.5-5.1); Sodium 140 mmol/L (136-145); Total Protein,Serum 6.2 g/dl (6.3-8.2); Triglycerides 352 mg/dl (30-150)
[2025-08-26 20:31] LABS: Thyroid Stimulating Hormone 11.00 uIU/mL (0.465-4.68)
[2025-08-26 20:36] LABS: Hemoglobin A1C 6.6 % (4.0-6.0)
--- OUTSIDE RECORDS SUMMARY | 2025-08-27 01:57 | XMS_ITS | Clinical Summary ---
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
== END 2025-08-26 23:59 ==
LOC: LAB.DROPOF 08-27 01:56
PROVIDERS: PCP Internal Medicine; Visit Provider Internal Medicine
DX: E11.42 Type 2 diabetes mellitus with diabetic polyneuropathy (principal); I10 Essential (primary) hypertension; E11.59 Type 2 diabetes mellitus with other circulatory complications; E78.5 Hyperlipidemia, unspecified; E03.9 Hypothyroidism, unspecified
CPT/HCPCS: 80053; 80061; 83036; 84443; 85025

== ENCOUNTER 2025-10-08 17:36 | Emergency (ER) | payer MEDICARE, OTHER, SELFPAY ==
--- NOTE | 2025-10-08 17:44 | HMH.EDGENADL ---
Discharge Plan Disposition Patient Disposition: Home, Self-Care Condition: Good Prescriptions Prescriptions: No Action latanoprost 0.005 % drops 1 drp ophthalmic (eye) HS acetaminophen [Tylenol Extra Strength] 500 mg tablet 500 mg PO Q6H PRN hydrochlorothiazide 25 mg tablet 25 mg PO BID Qty: 180 1RF gabapentin 300 mg capsule See Rx Instructions .ROUTE .COMPLEX Qty: 180 1RF Dose Instruction: TAKE TWO CAPSULES BY MOUTH EVERY DAY AT BEDTIME Rx Instructions: TAKE TWO CAPSULES BY MOUTH EVERY DAY AT BEDTIME atorvastatin 40 mg tablet 40 mg PO DAILY Qty: 90 1RF fenofibrate nanocrystallized 145 mg tablet 145 mg PO DAILY Qty: 90 1RF pantoprazole [Protonix] 40 mg tablet,delayed release (DR/EC) 40 mg PO DAILY Qty: 90 1RF Jardiance 10 mg tablet 10 mg PO DAILY Qty: 90 1RF furosemide 20 mg tablet 20 mg PO DAILY Qty: 90 1RF irbesartan 300 mg tablet 300 mg PO DAILY Qty: 90 1RF allopurinol 100 mg tablet 100 mg PO DAILY Qty: 90 1RF amlodipine 10 mg tablet 10 mg PO DAILY Qty: 90 1RF aspirin 81 mg tablet,delayed release (DR/EC) 81 mg PO DAILY Qty: 90 1RF clopidogrel 75 mg tablet See Rx Instructions .ROUTE .COMPLEX Qty: 90 1RF Dose Instruction: TAKE ONE TABLET BY MOUTH EVERY DAY Rx Instructions: TAKE ONE TABLET BY MOUTH EVERY DAY dorzolamide-timolol (PF) 2-0.5 % dropperette 1 drp ophthalmic (eye) BID Qty: 60 1RF doxazosin 2 mg tablet 2 mg PO DAILY Qty: 90 1RF ibandronate 150 mg tablet 150 mg PO QMONTH Qty: 7 1RF metformin 500 mg tablet See Rx Instructions .ROUTE .COMPLEX Qty: 180 1RF Dose Instruction: TAKE ONE TABLET BY MOUTH TWICE A DAY WITH MEALS Rx Instructions: TAKE ONE TABLET BY MOUTH TWICE A DAY WITH MEALS potassium chloride 20 mEq tablet extended release 20 meq PO DAILY Qty: 90 1RF metoprolol tartrate 100 mg tablet 100 mg PO BID Qty: 90 1RF ergocalciferol (vitamin D2) [Vitamin D2] 1,250 mcg (50,000 unit) capsule 50,000 unit PO WEEKLY Qty: 12 1RF duloxetine 20 mg capsule,delayed release(DR/EC) 20 mg PO DAILY Qty: 90 1RF levothyroxine [Levoxyl] 100 mcg tablet 100 mcg PO DAILY Qty: 90 1RF Referrals Follow up/Referrals: Layo Maurice MD [Primary Care Provider, Medical] - See instructions Activity Restrictions/Add. Instructions Additional Instructions/Restrictions: Please return to the emergency department with any worsening signs or symptoms, continue to follow all of your restrictions postoperatively as recommended by your orthopedic surgeon, please follow-up with the orthopedic surgeon in the upcoming days/weeks. Please continue to take all your medication as prescribed. I recommend stress ball for your hand swelling. Clinical Impressions Clinical Impression: Dependent edema, Postoperative edema Instructions Patient Instructions: DI for Dependent Edema Print Language Print Language: Jordanian Discharge ED Provider: Bennett Thapa General Adult HPI <VIGNESH Wild - Last Filed: 10/08/25 18:20> General Chief complaint: PAIN Stated complaint: Right arm surgery and right hand is swollen Time Seen by Provider: 10/08/25 17:46 Mode of Arrival: Ambulatory Source of Information: Patient, Relative and Medical Record Limitations: No Limitations History of Present Illness HPI narrative: 80-year-old female presents the emergency department accompanied by her family for right hand swelling that occurred after her what sounds like a proximal humeral head fracture that was surgically fixed with hardware on 10/03/2025 by orthopedic surgeon in [facility], currently in [facility]. Patient denies any fever chills chest pain shortness of breath, denies any overt pain in her hand or wrist, does have her postoperative incisional type pain to her right humerus, patient states that she had this fracture occurred due to a fall, she denies any other trauma or injury since her surgery she states she has been following her postoperative restrictions as prescribe, taking all her other medication as prescribed, denies any numbness tingling, does have some sharp pains that will shoot down from her humerus area into her arm at times, but this has been present since surgery, patient denies any abdominal pain nausea vomiting constipation diarrhea no urinary symptoms, patient is a non-smoker denies any alcohol or drug use, other past medical history is consistent with history of thyroid cancer, T2DM, hyperlipidemia, hypertension, coronary artery disease on dual antiplatelet therapy Plavix and aspirin, CKD, carotid artery disease, GERD, updated physician history of colon and liver cancer. Initial triage vitals unremarkable. Please note that above description of symptoms, in this electronic medical record under categorization of recalled from ER triage doctor by RN are reflective of an initial nursing assessment, however, is not reflective of my full history and physical exam that was personally taken and clarified. Consequentially, this preceding description of symptoms, which may include the patient's categorized chief complaint in the EMR, do not reflect my personal clinical impression, and the ultimate description of history of present illness and patient stated complaints should be deferred to this section of the note. Unless stated otherwise or congruent with this section of the note, additional signs, symptoms, or incongruence should be interpreted as inaccurate with my clinical impression. Onset (ago): day(s) Related Data Home Medications ?Medication ?Instructions ?Recorded ?Confirmed latanoprost 0.005 % eye drops 1 drp ophthalmic (eye) HS 05/02/24 08/26/25 acetaminophen 500 mg tablet 500 mg PO Q6H PRN 05/23/25 08/26/25 (Tylenol Extra Strength) Previous Rx's ?Medication ?Instructions ?Recorded gabapentin 300 mg capsule See Rx Instructions .Route 03/19/25 .COMPLEX #180 caps atorvastatin 40 mg tablet 40 mg PO DAILY Cholesterol #90 tabs 04/04/25 fenofibrate nanocrystallized 145 145 mg PO DAILY #90 tabs 04/04/25 mg tablet pantoprazole 40 mg tablet,delayed 40 mg PO DAILY #90 tabs 04/04/25 release (Protonix) empagliflozin 10 mg tablet 10 mg PO DAILY #90 tabs 04/19/25 (Jardiance) furosemide 20 mg tablet 20 mg PO DAILY #90 tabs 04/19/25 irbesartan 300 mg tablet 300 mg PO DAILY #90 tabs 04/19/25 hydrochlorothiazide 25 mg tablet 25 mg PO BID #180 tabs 05/23/25 allopurinol 100 mg tablet 100 mg PO DAILY #90 tabs 05/29/25 amlodipine 10 mg tablet 10 mg PO DAILY #90 tabs 05/29/25 aspirin 81 mg tablet,delayed 81 mg PO DAILY Heart Health #90 05/29/25 release tabs clopidogrel 75 mg tablet See Rx Instructions .Route 05/29/25 .COMPLEX #90 tabs dorzolamide-timolol (PF) 2 %-0.5 % 1 drp ophthalmic (eye) BID #60 ea 05/29/25 eye drops in a dropperette doxazosin 2 mg tablet 2 mg PO DAILY #90 tabs 05/29/25 ergocalciferol (vitamin D2) 1,250 50,000 unit PO WEEKLY Supplement 05/29/25 mcg (50,000 unit) capsule (Vitamin #12 caps D2) ibandronate 150 mg tablet 150 mg PO QMONTH #7 tabs 05/29/25 metformin 500 mg tablet See Rx Instructions .Route 05/29/25 .COMPLEX #180 tabs metoprolol tartrate 100 mg tablet 100 mg PO BID High blood pressure 05/29/25 #90 tabs potassium chloride 20 mEq 20 meq PO DAILY #90 tabs 05/29/25 tablet,extended release duloxetine 20 mg capsule,delayed 20 mg PO DAILY #90 caps 08/15/25 release levothyroxine 100 mcg tablet 100 mcg PO DAILY #90 tabs 08/27/25 (Levoxyl) Allergies Allergy/AdvReac Type Severity Reaction Status Date / Time enalaprilat (From Vasotec) Allergy Severe Cough Verified 08/26/25 08:44 lisinopril (LISINOPRIL) Allergy Severe Cough Verified 08/26/25 08:44 warfarin Allergy Severe blood too Verified 08/26/25 08:44 thin levofloxacin (From LEVAQUIN) Allergy Mild rash Verified 08/26/25 08:44 rosuvastatin (From CRESTOR) Allergy Mild muscle Verified 08/26/25 08:44 aches sulfamethoxazole (From Allergy Mild Rash Verified 08/26/25 08:44 Bactrim) trimethoprim (From Bactrim) Allergy Mild Rash Verified 08/26/25 08:44 citalopram Allergy Hallucinati Verified 08/26/25 08:44 ng anastrozole (From Arimidex) AdvReac Mild Rash Verified 08/26/25 08:44 bacitracin AdvReac Mild Rash Verified 08/26/25 08:44 fluvastatin (From Lescol) AdvReac Mild muscle Verified 08/26/25 08:44 aches PFSH <VIGNESH Wild - Last Filed: 10/08/25 18:20> PFS Disclaimer: The information contained in this section may have been updated after the patient was seen, as this information can be updated by other users. Medical History Peripheral vascular disease PAD (peripheral artery disease) CAD (coronary artery disease) Elevated coronary artery calcium score Anxiety Hemorrhoid Hypothyroid Diabetes mellitus, type 2 History of cataract History of anemia Breast cancer Liver cancer Colon cancer Thyroid cancer Abnormal stress test Atypical angina Abnormal ankle brachial index (NINA) Carotid bruit HLD (hyperlipidemia) HTN (hypertension) Decreased pedal pulses Claudication Renal insufficiency Palpitations Surgical History H/O dilation and curettage Peripheral vascular angioplasty status with implants and grafts Hx of cataract surgery History of appendectomy Hx of cholecystectomy H/O lumpectomy RIGHT BREAST History of surgery of liver PART OF LIVER REMOVED History of colon resection History of thyroid surgery Family History Other CHF (congestive heart failure) Heart disease Stroke Social History Smoking Status: Never smoker alcohol intake: never current occupational status: retired Travel in the last 8 weeks?: None caffeine: Yes Have you lived/traveled outside [place] in past 30 days?: No Contact w/someone who lives/traveled outside US past 30 days?: No Exposure to someone with infectious disease in past 14 days?: No Do you have a fever (greater than 100.4 F or 38 C)?: No Have you tested positive for COVID-19?: No Exposed to someone with COVID-19 in past 14 days?: No Do you have a sore throat?: No Do you have a cough?: No Do you have any weakness?: No Do you have any diarrhea?: No Are you experiencing any unusual bleeding?: No Do you have any muscle aches/pain?: No Do you have any abdominal pain?: No Are you experiencing loss of taste or smell?: No Other Medical History Have you received the Flu Vaccine for this season: No Have you received the Pneumonia Vaccine: Yes <VIGNESH Wild - Last Filed: 10/08/25 18:20> ROS Obtained: Yes All systems reviewed & no additional complaints except as documented Physical Exam <VIGNESH Wild - Last Filed: 10/08/25 18:20> General General appearance: alert and in no apparent distress Head Head exam: atraumatic and normocephalic Eye Eye exam: Present PERRL and EOMI ENT ENT exam: Present mucous membranes moist Neck Neck exam: Present normal inspection Chest Chest inspection: Present normal inspection and symmetric chest wall rise Respiratory Respiratory exam: Present normal lung sounds bilaterally; Absent respiratory distress Cardiovascular Cardiovascular exam: Present regular rate and normal rhythm Abdominal Exam Abdominal exam: Present soft; Absent tenderness Extremities Exam Extremities exam: Present normal inspection and other (There is mild soft tissue swelling about the dorsal aspect of the hand and digits, patient moves extremities to command, with some pain limited range of motion around her incision site/upper extremity where her surgery took place, compartments are soft and compressible, otherwise neurovascular intac); Absent full ROM, tenderness or edema Neurological Exam Neurological exam: Present alert and oriented X3 Psychiatric Psychiatric exam: Present normal affect Skin Skin exam: Present warm, dry and other (No erythema, wounds look to be well epithelialized, well-healed, no evidence of any wound dehiscence or drainage, surgical sutures dressing and audery are in place) Medical Decision Making <VIGNESH Wild - Last Filed: 10/08/25 18:20> Medical Records Medical records reviewed: Yes I reviewed the patient's medical records. Screening: Per USPSTF and CDC recommendations, given the prevalence of disease in our region, it is our hospital?s policy to screen for HIV and viral Hepatitis for all patients aged 18 and over and those with ongoing risk factors. Junior Inquiry Pt receiving controlled substance: No Vital Signs: 10/08/25 17:48 Temperature 98.0 F Temperature Source Oral Pulse Rate [Radial] 89 Respiratory Rate 16 Blood Pressure [Left Arm] 175/111 H Blood Pressure Mean [Left Arm] 132 Blood Pressure Source [Left Arm] Automatic Cuff Blood Pressure Position [Left Arm] Sitting 02 Sat by Pulse Oximetry 97 Oxygen Delivery Method Room Air Orders (Tests/Meds): ORDERS Category Date Time Status HIV Combo Stat Lab 10/08/25 17:51 Ordered Hepatitis C Ab Qual. W/ RFX Stat Lab 10/08/25 17:51 Ordered Medical Decision Narrative: 80-year-old female presents to the emergency department with right hand swelling after surgery, see HPI for detailed past medical history, differential diagnose include but not limited to, dependent edema, postoperative swelling, postoperative pain, among others. I discussed this patient's case with the attending physician Dr. Thapa I discussed this patient's case with the on-call orthopedic surgeon Dr. Powers at approximately 6:05 PM, I discussed patient's clinical exam findings, he believes it is most likely dependent edema if it was there since surgery, if compartments are soft and incisions are intact and showing no signs of erythema and neurovascular intact he believes most likely dependent edema, recommend stress ball for symptomatic relief. After thorough examination of the patient I do not believe the patient has any compartment syndrome, discussed these clinical findings with orthopedic surgeon as above, incision sites look to be within normal limits, no erythema no evidence of any wound dehiscence drainage, surgical incision sutures and audrey appear to be in place, surgical wound dressing is not soaked, will replace the patient's Tonio wrap that was around her proximal humerus area, as well as ABD pad that covered her lateral aspect of her sutures, and will place patient back in her brace. patient had no pain to palpation to her distal forearm, elbow, dorsum and plantar aspects of her hand, she had good finger opposition and was neurovascular intact. Patient was given strict ED return precautions, I have low clinical concern for upper extremity DVT at this time due to duration of symptomatology being a swelling has been present after her surgery, and no change in swelling, otherwise neurovascularly intact with no numbness tingling or overt pain that is outside of her postoperative type pain I advised patient to follow-up with her orthopedic surgeon who performed her surgery in the upcoming days/weeks. Patient voiced understanding and agreement with the current treatment plan/discharge plan. Patient will follow her postop restrictions as currently prescribed by orthopedic surgeon. <Bennett Thapa MD - Last Filed: 10/08/25 18:22> Vital Signs: 10/08/25 17:48 Temperature 98.0 F Temperature Source Oral Pulse Rate [Radial] 89 Respiratory Rate 16 Blood Pressure [Left Arm] 175/111 H Blood Pressure Mean [Left Arm] 132 Blood Pressure Source [Left Arm] Automatic Cuff Blood Pressure Position [Left Arm] Sitting 02 Sat by Pulse Oximetry 97 Oxygen Delivery Method Room Air Orders (Tests/Meds): ORDERS Category Date Time Status HIV Combo Stat Lab 10/08/25 17:51 Ordered Hepatitis C Ab Qual. W/ RFX Stat Lab 10/08/25 17:51 Ordered Medical Decision Narrative: 80-year-old female presents to the emergency department with right hand swelling after surgery, see HPI for detailed past medical history, differential diagnose include but not limited to, dependent edema, postoperative swelling, postoperative pain, among others. I discussed this patient's case with the attending physician Dr. Thapa I discussed this patient's case with the on-call orthopedic surgeon Dr. Powers at approximately 6:05 PM, I discussed patient's clinical exam findings, he believes it is most likely dependent edema if it was there since surgery, if compartments are soft and incisions are intact and showing no signs of erythema and neurovascular intact he believes most likely dependent edema, recommend stress ball for symptomatic relief. After thorough examination of the patient I do not believe the patient has any compartment syndrome, discussed these clinical findings with orthopedic surgeon as above, incision sites look to be within normal limits, no erythema no evidence of any wound dehiscence drainage, surgical incision sutures and audrey appear to be in place, surgical wound dressing is not soaked, will replace the patient's Tonio wrap that was around her proximal humerus area, as well as ABD pad that covered her lateral aspect of her sutures, and will place patient back in her brace. patient had no pain to palpation to her distal forearm, elbow, dorsum and plantar aspects of her hand, she had good finger opposition and was neurovascular intact. Patient was given strict ED return precautions, I have low clinical concern for upper extremity DVT at this time due to duration of symptomatology being a swelling has been present after her surgery, and no change in swelling, otherwise neurovascularly intact with no numbness tingling or overt pain that is outside of her postoperative type pain I advised patient to follow-up with her orthopedic surgeon who performed her surgery in the upcoming days/weeks. Patient voiced understanding and agreement with the current treatment plan/discharge plan. Patient will follow her postop restrictions as currently prescribed by orthopedic surgeon. Bennett Thapa MD: I was consulted by the KIMO, and we discussed the complexity of the problems being addressed. I approved the treatment and management plan for this patient's care in the emergency department, thus performing a substantive portion of the medical decision making. Critical Care <VIGNESH Wild - Last Filed: 10/08/25 18:20> Critical Care Time Critical Care Time: No
[2025-10-08 17:48] VITALS: BP 175/111; PULSE 89; RESP 16; TEMP 36.7; O2SAT 97; BMI 29.5
[2025-10-08 18:29] VITALS: BP 175/111; PULSE 89; RESP 16; TEMP 36.7; O2SAT 97
== END 2025-10-08 18:30 | disposition home or self-care (01) ==
PROVIDERS: Emergency Provider Emergency Medicine; PCP Internal Medicine
DX: R60.0 Localized edema (principal)
CPT/HCPCS: 99282

== ENCOUNTER 2025-11-20 14:00 | Outpatient (RCR) | payer MEDICARE, OTHER, SELFPAY | END 2025-11-20 23:59 | disposition home or self-care (01) | LOC: PT.CARL 14:00 | PROVIDERS: PCP Internal Medicine; Visit Provider Student in an Organized Health Care Education/Training Program | DX: Z47.89 Encounter for other orthopedic aftercare (principal); S42.301A Unspecified fracture of shaft of humerus, right arm, initial encounter for closed fracture | CPT/HCPCS: 97110; 97140; 97162; 97530 ==